=== PATIENT | female | born 1975 | race Caucasian/White ===

== ENCOUNTER 2018-12-23 06:17 | Inpatient (IN) | payer OTHER ==
[~2018-12-23] VITALS: Ht 167.6 cm; Wt 75.0 kg
[2018-12-23 08:35] VITALS: BP 131/64; PULSE 69; RESP 18; Ht 167.6 cm; Wt 75.0 kg
--- NOTE | 2018-12-23 10:11 | HP ---
Date/Time of Note Date/Time of Note DATE: 12/23/18 TIME: 10:10 Assessment/Plan VTE Prophylaxis Pharmacological prophylaxis: NA/contraindicated Pharm contraindication: low risk/ambulating Lines/Catheters IV Catheter Type (from [facility]): Saline Lock Assessment/Plan Hospital Course Symptomatic Cholelithiasis r/o choledocholithiasis -MRCP -surgical consult, if there's evidence of obstruction, will get GI -repeat labs -NPO for now -pain control and supportive care HPI/ROS Admit Date/Time Admit Date/Time December 23, 2018 at 08:45 Hx of Present Illness 43-year-old female who was sent to us from outside emergency room after she had gone to review for complaints of right upper quadrant pain for the last 8 days. Apparently she had gone to a different ER day prior and was giving pain medication but the pain was persistent. At that time she had been diagnosed with gallstones. Unfortunately the pain medications that were prescribed did not relieve her pain and so she went to [facility] for reassessment. She denied fever, hematemesis, melena, or hematochezia. Denies chest pain or shortness of breath. Had labs at the emergency room was notable for LFT elevation with obstructive biliary pattern. Ultrasound was showing a dilated common bile duct but no gallstone. The emergency room made a decision to admit for obstructive hepatopathy. Patient was at transferred to us due to insurance reasons. ROS 12 point review if systems was done and pertinent findings are as noted. PMH/Family/Social Past Medical History Medical History: gallstones Coded Allergies: No Known Allergy (Unverified , 12/23/18) Past Surgical History Past Surgical Hx: no surgical history Family History Significant Family History: no pertinent family hx Social History Alcohol Use: none Smoking Status: Never smoker Drug Use: none Exam/Review of Systems Vital Signs Vitals Vital Signs Date Temp Pulse Resp B/P (MAP) Pulse Ox O2 O2 Flow FiO2 Time Delivery Rate 12/23/18 98.0 69 18 131/64 100 Room Air 08:35 (86) Exam Exam General: A&O x3, answering questions appropriately HEENT: NC/ AT. PERRL. EOM intact Neck: supple CVS: S1, S2, RRR. no murmurs. no pain on chest wall palpation Lungs: CTA b/l. no wheezing or rhonchi Abd: soft, RUQ and epigastric tenderness, +BS Ext: moving all extremities skin: no rashes ANDRÉS GRAHAM December 23, 2018 10:11
[2018-12-23] MEDS: DOCUSATE SODIUM 100 MG CAP PO SCH ×2 (10:30→19:58)
[2018-12-23] MEDS ORDERED: ACETAMINOPHEN 325 MG TAB PO PRN (10:30)
[2018-12-23] MEDS: FAMOTIDINE 20 MG TAB PO SCH ×2 (10:30→19:59)
[2018-12-23] MEDS ORDERED: HYDROCODONE/APAP (5/325) TAB PO PRN (10:30)
[2018-12-23] MEDS ORDERED: ONDANSETRON 4 MG INJ IV PRN (10:30)
[2018-12-23] MEDS: DEXTROSE 5%-0.45% NACL 1,000 ML IV SCH ×3 (11:04→22:05)
[2018-12-23] MEDS: morphine 2 MG INJ IV PRN (15:49)
[2018-12-23 16:25] VITALS: BP 129/62; PULSE 68; RESP 18
--- NOTE | 2018-12-23 17:39 | CONS ---
Assessment/Plan Assessment/Plan Hospital Course (Demo Recall) Summary Assessment and Plan: Assessment: Transaminitis Direct hyperbilirubinemia Dilated common bile duct on ultrasound from outside hospital Probable hepatic steatosis Plan: MRCP pending results patient may require ERCP Monitor LFTs Hepatitis panel ok to start clear liquid diet after MRCP Patient seen in collaboration with Dr. Orozco CC: OVIDIO OROZCO MD ; Consultation Date/Type/Reason Admit Date/Time December 23, 2018 at 08:45 Date of Consultation: December 23, 2018 Type of Consult GI Reason for Consultation Transaminitis with direct hyperbilirubinemia Dilated common bile duct Date/Time of Note DATE: 12/23/18 TIME: 17:27 Hx of Present Illness This is a 43-year-old speaking female with no significant past medical history who presented to an outside hospital with complaints of right upper quadrant pain with radiation to the back associated with nausea and vomiting. There work -up included chemistry panel which revealed transaminitis with direct hyperbilirubinemia lipase was noted to be within normal limits she had a test which was negative. A right upper quadrant ultrasound showing probable hepatic steatosis unremarkable sonographic appearance of the gallbladder NO gallstones and a dilated extrahepatic common bile duct measuring up to 9 mm in greatest dimension once deemed stable patient was transferred to [facility] for further evaluation. Currently patient patient states pain has improved with the use of morphine no complaints of nausea or vomiting at this time. Discussed plan for MRCP pending results patient may require ERCP. Review of Systems: A 12 system, review was conducted and is negative except as noted in the HPI or here. Past Medical History Medical History: gallstones Medications Current Medications Dextrose/Sodium Chloride 1,000 ml @ 100 mls/hr Q10H IV Last administered on 12/23/18at 11:04; Admin Dose 100 MLS/HR; Start 12/23/18 at 10:30 Ondansetron HCl (Zofran Inj) 4 mg Q6H PRN IV NAUSEA/VOMITING; Start 12/23/18 at 10:30 Acetaminophen (Tylenol Tab) 650 mg Q6H PRN PO .PAIN 1-3 OR TEMP; Start 12/23/18 at 10:30 Acetaminophen/ Hydrocodone Bitart ([place] (5/325)) 1 tab Q6H PRN PO .MOD PAIN 4- 6; Start 12/23/18 at 10:30 Morphine Sulfate (morphine) 2 mg Q4H PRN IV .SEVERE PAIN 7-10 Last administered on 12/23/18at 15:49; Admin Dose 2 MG; Start 12/23/18 at 10:30 Docusate Sodium (Colace) 100 mg Q12 PO ; Start 12/23/18 at 10:30 Famotidine (Pepcid) 20 mg Q12 PO ; Start 12/23/18 at 10:30 Allergies: Coded Allergies: No Known Allergy (Unverified , 12/23/18) Past Surgical History Past Surgical Hx: no surgical history Social History Alcohol Use: none Smoking Status: Never smoker Drug Use: none Exam/Review of Systems Exam Vitals Vital Signs Date Temp Pulse Resp B/P (MAP) Pulse Ox O2 O2 Flow FiO2 Time Delivery Rate 12/23/18 98.0 68 18 129/62 90 Room Air 16:25 (84) Exam PHYSICAL EXAMINATION: GENERAL: Well developed, well nourished, alert & oriented x 3, in no acute distress SKIN: No lesions HEAD: Normocephalic, atraumatic, no tenderness. EYES: Pupils equal reactive to light, no discharge. EARS/NOSE AND THROAT: Ears normal. NECK: Supple, no masses, thyroid normal. CHEST: Inspection within normal limits. CARDIOVASCULAR: Heart: Regular rate and rhythm, RESPIRATORY: Lungs clear to auscultation and percussion, no wheezing, no rubs GASTROINTESTINAL AND LIVER: Abdomen: Soft, RUQ tenderness, non-distended, no hernias, no masses, no organomegaly, no ascites, no guarding, no rebound tenderness, normoactive bowel sounds. Rectal: Deferred. EXTREMITIES: No cyanosis, clubbing or edema. Medications Medication Current Medications Dextrose/Sodium Chloride 1,000 ml @ 100 mls/hr Q10H IV Last administered on 12/23/18at 11:04; Admin Dose 100 MLS/HR; Start 12/23/18 at 10:30 Ondansetron HCl (Zofran Inj) 4 mg Q6H PRN IV NAUSEA/VOMITING; Start 12/23/18 at 10:30 Acetaminophen (Tylenol Tab) 650 mg Q6H PRN PO .PAIN 1-3 OR TEMP; Start 12/23/18 at 10:30 Acetaminophen/ Hydrocodone Bitart ([place] (5/325)) 1 tab Q6H PRN PO .MOD PAIN 4- 6; Start 12/23/18 at 10:30 Morphine Sulfate (morphine) 2 mg Q4H PRN IV .SEVERE PAIN 7-10 Last administered on 12/23/18at 15:49; Admin Dose 2 MG; Start 12/23/18 at 10:30 Docusate Sodium (Colace) 100 mg Q12 PO ; Start 12/23/18 at 10:30 Famotidine (Pepcid) 20 mg Q12 PO ; Start 12/23/18 at 10:30 ANDERS DAVIS December 23, 2018 17:38
[2018-12-23 19:20] VITALS: BP 124/67; PULSE 62; RESP 18
--- NOTE | 2018-12-23 20:17 | CONS ---
Consultation Date/Type/Reason Admit Date/Time December 23, 2018 at 08:45 Date of Consultation: December 23, 2018 Type of Consult G. Surgical Reason for Consultation Abdominal pain Transaminitis Hyperbilirubinemia CBD dilation Date/Time of Note DATE: 12/23/18 TIME: 20:16 Past Medical History Medical History: gallstones Medications Current Medications Dextrose/Sodium Chloride 1,000 ml @ 100 mls/hr Q10H IV Last administered on 12/23/18at 11:04; Admin Dose 100 MLS/HR; Start 12/23/18 at 10:30 Ondansetron HCl (Zofran Inj) 4 mg Q6H PRN IV NAUSEA/VOMITING; Start 12/23/18 at 10:30 Acetaminophen (Tylenol Tab) 650 mg Q6H PRN PO .PAIN 1-3 OR TEMP; Start 12/23/18 at 10:30 Acetaminophen/ Hydrocodone Bitart ([place] (5/325)) 1 tab Q6H PRN PO .MOD PAIN 4- 6; Start 12/23/18 at 10:30 Morphine Sulfate (morphine) 2 mg Q4H PRN IV .SEVERE PAIN 7-10 Last administered on 12/23/18at 15:49; Admin Dose 2 MG; Start 12/23/18 at 10:30 Docusate Sodium (Colace) 100 mg Q12 PO ; Start 12/23/18 at 10:30 Famotidine (Pepcid) 20 mg Q12 PO ; Start 12/23/18 at 10:30 Allergies: Coded Allergies: No Known Allergy (Unverified , 12/23/18) Past Surgical History Past Surgical Hx: no surgical history Social History Alcohol Use: none Smoking Status: Never smoker Drug Use: none Exam/Review of Systems Exam Vitals Vital Signs Date Temp Pulse Resp B/P (MAP) Pulse Ox O2 O2 Flow FiO2 Time Delivery Rate 12/23/18 98.0 68 18 129/62 90 Room Air 16:25 (84) Medications Medication Current Medications Dextrose/Sodium Chloride 1,000 ml @ 100 mls/hr Q10H IV Last administered on 12/23/18at 11:04; Admin Dose 100 MLS/HR; Start 12/23/18 at 10:30 Ondansetron HCl (Zofran Inj) 4 mg Q6H PRN IV NAUSEA/VOMITING; Start 12/23/18 at 10:30 Acetaminophen (Tylenol Tab) 650 mg Q6H PRN PO .PAIN 1-3 OR TEMP; Start 12/23/18 at 10:30 Acetaminophen/ Hydrocodone Bitart ([place] (5/325)) 1 tab Q6H PRN PO .MOD PAIN 4- 6; Start 12/23/18 at 10:30 Morphine Sulfate (morphine) 2 mg Q4H PRN IV .SEVERE PAIN 7-10 Last administered on 12/23/18at 15:49; Admin Dose 2 MG; Start 12/23/18 at 10:30 Docusate Sodium (Colace) 100 mg Q12 PO ; Start 12/23/18 at 10:30 Famotidine (Pepcid) 20 mg Q12 PO ; Start 12/23/18 at 10:30 ARTIS MAHER MD December 23, 2018 20:17
[2018-12-24] VITALS (7 sets, daily range): BP systolic 110–132; BP diastolic 65–74; PULSE 60–80; RESP 16–20
[2018-12-24] MEDS: morphine 2 MG INJ IV PRN (07:52)
[2018-12-24] MEDS: DOCUSATE SODIUM 100 MG CAP PO SCH ×2 (08:34→21:56)
[2018-12-24] MEDS: FAMOTIDINE 20 MG TAB PO SCH ×2 (08:34→21:56)
--- NOTE | 2018-12-24 10:30 | PN ---
Date/Time of Note Date/Time of Note DATE: 12/24/18 TIME: 10:28 Assessment/Plan VTE Prophylaxis Risk score (from Ns)>0 risk: 1 SCD applied (from Ns): Yes Pharmacological prophylaxis: other (scds) Lines/Catheters IV C[facility] Type (from [facility]): Saline Lock Assessment/Plan Hospital Course Summary Assessment and Plan: Assessment: Transaminitis Direct hyperbilirubinemia Dilated common bile duct on ultrasound from outside hospital -MRCP- Choledocholithiasis and mild intra and extrahepatic biliary ductal dil atation as described Probable acute cholecystitis with at least 1 stone or a grouping of stones seen in the cystic duct Probable hepatic steatosis Plan: NPO-we will plan for ERCP today pending OR availability I discussed with/benefits of sedation and procedure with patient verbalized understanding is agreeable Patient seen in collaboration with Dr. Orozco/[place] Subjective: Course reviewed with nursing staff Patient interviewed and examined All labs, imaging and other results reviewed The patient states she feels a little better Exam PHYSICAL EXAMINATION: GENERAL: Well developed, well nourished, alert & oriented x 3, in no acute distress SKIN: No lesions HEAD: Normocephalic, atraumatic, no tenderness. EYES: Pupils equal reactive to light, no discharge. EARS/NOSE AND THROAT: Ears normal. NECK: Supple, no masses, thyroid normal. CHEST: Inspection within normal limits. CARDIOVASCULAR: Heart: Regular rate and rhythm, RESPIRATORY: Lungs clear to auscultation and percussion, no wheezing, no rubs GASTROINTESTINAL AND LIVER: Abdomen: Soft, RUQ tenderness, non-distended, no hernias, no masses, no organomegaly, no ascites, no guarding, no rebound tenderness, normoactive bowel sounds. Rectal: Deferred. EXTREMITIES: No cyanosis, clubbing or edema. Result Diagram: 12/24/18 0434 12/24/18 0434 Results 24hrs Laboratory Tests Test 12/23/18 19:16 12/24/18 04:34 Hepatitis B Surface Antigen NEGATIVE Hepatitis B Core Total Antibody NEGATIVE Hepatitis C Antibody NEGATIVE White Blood Count 6.6 Red Blood Count 3.94 L Hemoglobin 11.9 L Hematocrit 36.1 L Mean Corpuscular Volume 91.6 Mean Corpuscular Hemoglobin 30.2 Mean Corpuscular Hemoglobin Concent 33.0 Red Cell Distribution Width 14.2 Platelet Count 265 Mean Platelet Volume 9.5 Immature Granulocytes % 0.300 Neutrophils % 53.5 Lymphocytes % 34.2 Monocytes % 9.1 Eosinophils % 2.3 Basophils % 0.6 Nucleated Red Blood Cells % 0.0 Immature Granulocytes # 0.020 Neutrophils # 3.5 Lymphocytes # 2.3 Monocytes # 0.6 Eosinophils # 0.2 Basophils # 0.0 Nucleated Red Blood Cells # 0.0 Sodium Level 139 Potassium Level 3.7 Chloride Level 105 Carbon Dioxide Level 28 Anion Gap 6 Blood Urea Nitrogen 5 L Creatinine 0.73 Est Glomerular Filtrat Rate mL/min > 60 Glucose Level 82 Calcium Level 8.8 Total Bilirubin 0.7 Direct Bilirubin 0.00 Indirect Bilirubin 0.7 Aspartate Amino Transf (AST/SGOT) 83 H Alanine Aminotransferase (ALT/SGPT) 206 H Alkaline Phosphatase 118 Total Protein 6.1 Albumin 3.4 Exam/Review of Systems Exam Vitals Vital Signs Date Temp Pulse Resp B/P (MAP) Pulse Ox O2 O2 Flow FiO2 Time Delivery Rate 12/24/18 98.2 63 18 112/65 92 Room Air 08:26 (81) Intake and Output 12/23/18 12/23/18 12/24/18 1515:00 23:00 07:00 IntakeIntake Total 1550 ml 600 ml BalanceBalance 1550 ml 600 ml Results Results 24hrs Laboratory Tests Test 12/23/18 19:16 12/24/18 04:34 Hepatitis B Surface Antigen NEGATIVE Hepatitis B Core Total Antibody NEGATIVE Hepatitis C Antibody NEGATIVE White Blood Count 6.6 Red Blood Count 3.94 L Hemoglobin 11.9 L Hematocrit 36.1 L Mean Corpuscular Volume 91.6 Mean Corpuscular Hemoglobin 30.2 Mean Corpuscular Hemoglobin Concent 33.0 Red Cell Distribution Width 14.2 Platelet Count 265 Mean Platelet Volume 9.5 Immature Granulocytes % 0.300 Neutrophils % 53.5 Lymphocytes % 34.2 Monocytes % 9.1 Eosinophils % 2.3 Basophils % 0.6 Nucleated Red Blood Cells % 0.0 Immature Granulocytes # 0.020 Neutrophils # 3.5 Lymphocytes # 2.3 Monocytes # 0.6 Eosinophils # 0.2 Basophils # 0.0 Nucleated Red Blood Cells # 0.0 Sodium Level 139 Potassium Level 3.7 Chloride Level 105 Carbon Dioxide Level 28 Anion Gap 6 Blood Urea Nitrogen 5 L Creatinine 0.73 Est Glomerular Filtrat Rate mL/min > 60 Glucose Level 82 Calcium Level 8.8 Total Bilirubin 0.7 Direct Bilirubin 0.00 Indirect Bilirubin 0.7 Aspartate Amino Transf (AST/SGOT) 83 H Alanine Aminotransferase (ALT/SGPT) 206 H Alkaline Phosphatase 118 Total Protein 6.1 Albumin 3.4 Medications Medication Current Medications Dextrose/Sodium Chloride 1,000 ml @ 100 mls/hr Q10H IV Last administered on 12/23/18 22:05; Admin Dose 100 MLS/HR; Start 12/23/18 at 10:30 Ondansetron HCl (Zofran Inj) 4 mg Q6H PRN IV NAUSEA/VOMITING; Start 12/23/18 at 10:30 Acetaminophen (Tylenol Tab) 650 mg Q6H PRN PO .PAIN 1-3 OR TEMP; Start 12/23/18 at 10:30 Acetaminophen/ Hydrocodone Bitart ([place] (5/325)) 1 tab Q6H PRN PO .MOD PAIN 4- 6 Last administered on 12/24/18 07:42; Admin Dose 1 TAB; Start 12/23/18 at 10:30 Morphine Sulfate (morphine) 2 mg Q4H PRN IV .SEVERE PAIN 7-10 Last administered on 12/24/18 07:52; Admin Dose 2 MG; Start 12/23/18 at 10:30 Docusate Sodium (Colace) 100 mg Q12 PO Last administered on 12/24/18 08:34; Admin Dose 100 MG; Start 12/23/18 at 10:30 Famotidine (Pepcid) 20 mg Q12 PO Last administered on 12/24/18 08:34; Admin Dose 20 MG; Start 12/23/18 at 10:30 ANDERS DAVIS December 24, 2018 10:30
--- NOTE | 2018-12-24 11:34 | PN ---
Date/Time of Note Date/Time of Note DATE: 12/24/18 TIME: 11:30 Assessment/Plan Lines/Catheters IV C[facility] Type (from [facility]): Saline Lock Assessment/Plan Chief Complaint/Hosp Course 1. Symptomatic cholelithiasis with choledocholithiasis and stone within cystic duct: -ERCP -Eventual lap les -Eventual low-fat low-cholesterol diet 2. Abdominal pain: -As above -Pain management 3.Mild transaminitis -As above -Trend 4. Normocytic normochromic anemia: -Monitor and transfuse as needed 5. Overweight BMI: 27 -diet and exercise optimization -encourage weight loss Thank you. Patient seen and examined in collaboration with Dr. Lane Florian. Subjective 24 Hr Interval Summary Continues to have abdominal pain. No fevers, chills, sob, congested cough, cp, palpitations, leyva, dizziness, nausea, vomiting, diarrhea, dysuria. Exam/Review of Systems Vital Signs Vitals Vital Signs Date Temp Pulse Resp B/P (MAP) Pulse Ox O2 O2 Flow FiO2 Time Delivery Rate 12/24/18 98.2 63 18 112/65 92 Room Air 08:26 (81) Intake and Output 12/23/18 12/23/18 12/24/18 1414:59 22:59 06:59 IntakeIntake Total 1550 ml 600 ml BalanceBalance 1550 ml 600 ml Exam Constitutional: alert, oriented, well developed Psych: nl mood/affect; No anxiety Head: normocephalic, atraumatic Eyes: nl conjunctiva, EOMI, nl lids, nl sclera ENMT: nl external ears & nose, nl lips & teeth, mucosa pink and moist Neck: supple, non-tender Respiratory: clear to auscultation, normal air movement Cardiovascular: regular rate and rhythm, nl pulses Gastrointestinal: soft, tender (Right upper quadrant; Rodriguez's negative by palpation) Musculoskeletal: nl extremities to inspection, nl gait and stance Extremities: normal pulses Neurological: nl mental status, nl speech, nl strength Skin: nl turgor; No rash or lesions Lymph: nl lymph nodes Results Result Diagram: 12/24/18 0434 12/24/18 0434 MARY OSMAN NP December 24, 2018 11:34
--- NOTE | 2018-12-24 12:33 | PN ---
Date/Time of Note Date/Time of Note DATE: 12/24/18 TIME: 12:29 Assessment/Plan VTE Prophylaxis Risk score (from Ns)>0 risk: 1 SCD applied (from Ns): Yes Pharmacological prophylaxis: NA/contraindicated Pharm contraindication: low risk/ambulating Lines/Catheters [facility] Saline Lock Urinary Cath still in place: No Assessment/Plan Hospital Course s: no new issues, NPO for possible ERCP today O: Constitutional: alert, oriented Head: atraumatic, normocephalic Neck: non-tender, supple Respiratory: clear to auscultation Cardiovascular: regular rate and rhythm Gastrointestinal: S/ seems less tender? / +BS Extremities: no edema, good radial pulses assessment and plan: Cholecystitis with Cholelithiasis and obstructive choledocholithiasis -MRCP concerning for cholecystitis with cholelithiasis, choledocholithiasis and intrahepatic extrahepatic biliary ductal dilatation -ERCP today and hopefully subsequent lap les tomorrow? -add abx for cholecystitis -pain control and supportive care Result Diagram: 12/24/18 0434 12/24/18 0434 Results 24hrs Laboratory Tests Test 12/23/18 19:16 12/24/18 04:34 Hepatitis B Surface Antigen NEGATIVE Hepatitis B Core Total Antibody NEGATIVE Hepatitis C Antibody NEGATIVE White Blood Count 6.6 Red Blood Count 3.94 L Hemoglobin 11.9 L Hematocrit 36.1 L Mean Corpuscular Volume 91.6 Mean Corpuscular Hemoglobin 30.2 Mean Corpuscular Hemoglobin Concent 33.0 Red Cell Distribution Width 14.2 Platelet Count 265 Mean Platelet Volume 9.5 Immature Granulocytes % 0.300 Neutrophils % 53.5 Lymphocytes % 34.2 Monocytes % 9.1 Eosinophils % 2.3 Basophils % 0.6 Nucleated Red Blood Cells % 0.0 Immature Granulocytes # 0.020 Neutrophils # 3.5 Lymphocytes # 2.3 Monocytes # 0.6 Eosinophils # 0.2 Basophils # 0.0 Nucleated Red Blood Cells # 0.0 Sodium Level 139 Potassium Level 3.7 Chloride Level 105 Carbon Dioxide Level 28 Anion Gap 6 Blood Urea Nitrogen 5 L Creatinine 0.73 Est Glomerular Filtrat Rate mL/min > 60 Glucose Level 82 Calcium Level 8.8 Total Bilirubin 0.7 Direct Bilirubin 0.00 Indirect Bilirubin 0.7 Aspartate Amino Transf (AST/SGOT) 83 H Alanine Aminotransferase (ALT/SGPT) 206 H Alkaline Phosphatase 118 Total Protein 6.1 Albumin 3.4 Exam/Review of Systems Exam Vitals Vital Signs Date Temp Pulse Resp B/P (MAP) Pulse Ox O2 O2 Flow FiO2 Time Delivery Rate 12/24/18 98.2 63 18 112/65 92 Room Air 08:26 (81) Intake and Output 12/23/18 12/23/18 12/24/18 1515:00 23:00 07:00 IntakeIntake Total 1550 ml 600 ml BalanceBalance 1550 ml 600 ml Results Results 24hrs Laboratory Tests Test 12/23/18 19:16 12/24/18 04:34 Hepatitis B Surface Antigen NEGATIVE Hepatitis B Core Total Antibody NEGATIVE Hepatitis C Antibody NEGATIVE White Blood Count 6.6 Red Blood Count 3.94 L Hemoglobin 11.9 L Hematocrit 36.1 L Mean Corpuscular Volume 91.6 Mean Corpuscular Hemoglobin 30.2 Mean Corpuscular Hemoglobin Concent 33.0 Red Cell Distribution Width 14.2 Platelet Count 265 Mean Platelet Volume 9.5 Immature Granulocytes % 0.300 Neutrophils % 53.5 Lymphocytes % 34.2 Monocytes % 9.1 Eosinophils % 2.3 Basophils % 0.6 Nucleated Red Blood Cells % 0.0 Immature Granulocytes # 0.020 Neutrophils # 3.5 Lymphocytes # 2.3 Monocytes # 0.6 Eosinophils # 0.2 Basophils # 0.0 Nucleated Red Blood Cells # 0.0 Sodium Level 139 Potassium Level 3.7 Chloride Level 105 Carbon Dioxide Level 28 Anion Gap 6 Blood Urea Nitrogen 5 L Creatinine 0.73 Est Glomerular Filtrat Rate mL/min > 60 Glucose Level 82 Calcium Level 8.8 Total Bilirubin 0.7 Direct Bilirubin 0.00 Indirect Bilirubin 0.7 Aspartate Amino Transf (AST/SGOT) 83 H Alanine Aminotransferase (ALT/SGPT) 206 H Alkaline Phosphatase 118 Total Protein 6.1 Albumin 3.4 Medications Medication Current Medications Dextrose/Sodium Chloride 1,000 ml @ 100 mls/hr Q10H IV Last administered on 12/23/18at 22:05; Admin Dose 100 MLS/HR; Start 12/23/18 at 10:30 Ondansetron HCl (Zofran Inj) 4 mg Q6H PRN IV NAUSEA/VOMITING; Start 12/23/18 at 10:30 Acetaminophen (Tylenol Tab) 650 mg Q6H PRN PO .PAIN 1-3 OR TEMP; Start 12/23/18 at 10:30 Acetaminophen/ Hydrocodone Bitart ([place] (5/325)) 1 tab Q6H PRN PO .MOD PAIN 4- 6 Last administered on 12/24/18 07:42; Admin Dose 1 TAB; Start 12/23/18 at 10:30 Morphine Sulfate (morphine) 2 mg Q4H PRN IV .SEVERE PAIN 7-10 Last administered on 12/24/18 07:52; Admin Dose 2 MG; Start 12/23/18 at 10:30 Docusate Sodium (Colace) 100 mg Q12 PO Last administered on 12/24/18 08:34; Admin Dose 100 MG; Start 12/23/18 at 10:30 Famotidine (Pepcid) 20 mg Q12 PO Last administered on 12/24/18 08:34; Admin Dose 20 MG; Start 12/23/18 at 10:30 Indomethacin (Indocin Supp) 100 mg ONCE ONCE [place] ; Start 12/24/18 at 18:00; Stop 12/24/18 at 18:01 ANDRÉS GRAHAM December 24, 2018 12:33
[2018-12-24] MEDS: PIPER-TAZO 3.375 GM IV (PMX) 100 ML IVPB SCH ×2 (13:06→21:56)
[2018-12-24] MEDS ORDERED: IOHEXOL 300MG/ML 30 ML BTL ONE (13:58)
--- NOTE | 2018-12-24 14:03 | PREAC ---
Date/Time of Note Date/Time of Note DATE: 12/24/18 TIME: 14:01 Anesthesia Eval and Record Evaluation Time Pre-Procedure Interview DATE: 12/24/18 TIME: 14:01 Age 43 Sex female NPO: 8 hrs Preoperative diagnosis choledocholithiasis Planned procedure ercp Past Medical History Past Medical History: None Surgery & Anesthesia Issues No known issue Meds Anticoagulation: No Beta Dominick within 24 hr: No Reason Beta Dominick not given: Pt. not on B-Dominick Current Medications Dextrose/Sodium Chloride 1,000 ml @ 100 mls/hr Q10H IV Last administered on 12/23/18at 22:05; Admin Dose 100 MLS/HR; Start 12/23/18 at 10:30 Ondansetron HCl (Zofran Inj) 4 mg Q6H PRN IV NAUSEA/VOMITING; Start 12/23/18 at 10:30 Acetaminophen (Tylenol Tab) 650 mg Q6H PRN PO .PAIN 1-3 OR TEMP; Start 12/23/18 at 10:30 Acetaminophen/ Hydrocodone Bitart ([place] (5/325)) 1 tab Q6H PRN PO .MOD PAIN 4- 6 Last administered on 12/24/18at 07:42; Admin Dose 1 TAB; Start 12/23/18 at 10:30 Morphine Sulfate (morphine) 2 mg Q4H PRN IV .SEVERE PAIN 7-10 Last administered on 12/24/18at 07:52; Admin Dose 2 MG; Start 12/23/18 at 10:30 Docusate Sodium (Colace) 100 mg Q12 PO Last administered on 12/24/18at 08:34; Admin Dose 100 MG; Start 12/23/18 at 10:30 Famotidine (Pepcid) 20 mg Q12 PO Last administered on 12/24/18at 08:34; Admin Dose 20 MG; Start 12/23/18 at 10:30 Indomethacin (Indocin Supp) 100 mg ONCE ONCE [place] ; Start 12/24/18 at 18:00; Stop 12/24/18 at 18:01 Piperacillin Sod/ Tazobactam Sod 100 ml @ 200 mls/hr Q8 IVPB Last administered on 12/24/18at 13:06; Admin Dose 200 MLS/HR; Start 12/24/18 at 13:00 Meds reviewed: Yes Allergies Coded Allergies: No Known Allergy (Unverified , 5/22/19) Allergies Reviewed: Yes Labs/Studies Labs Reviewed: Reviewed by anesthesiologist Result Diagram: 12/24/18 0434 12/24/18 0434 Laboratory Tests 12/24/18 04:34 test: Negative Pre-procedure Exam Last vitals Vital Signs Date Temp Pulse Resp B/P (MAP) Pulse Ox O2 O2 Flow FiO2 Time Delivery Rate 12/24/18 98.2 63 18 112/65 92 Room Air 08:26 (81) Airway: Adequate mouth opening, Adequate thyromental dist Mallampati: Mallampati II Teeth: Normal Lung: Normal Heart: Normal ASA Physical Status ASA physical status: 1 Emergency: None Planned Anesthetic General/MAC: ETT Planned Pain Management Parenteral pain med Pre-operative Attestations Prior to commencing anesthesia and surgery, the patient was re-evaluated, there was verification of: *The patient's identity *The results of appropriate recent lab work and preoperative vital signs *The above evaluation not changing prior to induction *Anesthetic plan, risk benefits, alternative and complications discussed with patient/family; questions answered; patient/family understands, accepts and wishes to proceed. GEOFF MCKEE December 24, 2018 14:03
[2018-12-24] MEDS ORDERED: PROPOFOL 20 ML ONE (14:11)
--- NOTE | 2018-12-24 14:11 | HPN ---
Date/Time of Note Date/Time of Note DATE: 12/24/18 TIME: 14:11 Interval H&P Admission Note Pt. seen H&P reviewed: No system changes JUAN JAMES December 24, 2018 14:11
[2018-12-24] MEDS ORDERED: LIDOCAINE 2% (SDV) 5 ML INJ ONE (14:12)
[2018-12-24] MEDS ORDERED: ROCURONIUM 50 MG INJ ONE (14:12)
[2018-12-24] MEDS ORDERED: DEXAMETHASONE 4 MG/ML 5 ML INJ ONE (14:42)
[2018-12-24] MEDS ORDERED: ONDANSETRON 4 MG INJ ONE (14:42)
[2018-12-24] MEDS ORDERED: GLYCOPYRROLATE 0.4 MG INJ ONE (15:27)
[2018-12-24] MEDS ORDERED: NEOSTIGMINE 3 MG/3 ML SYRINGE ONE (15:27)
[2018-12-24] MEDS ORDERED: MIDAZOLAM 1 MG/ML 2 ML INJ IV PRN (15:30)
[2018-12-24] MEDS ORDERED: LABETALOL HCL 20MG INJ IV PRN (15:30)
[2018-12-24] MEDS ORDERED: FENTAnyl 50 MCG/ML VIAL IV PRN ×3 (15:30)
[2018-12-24] MEDS ORDERED: EPHEDrine 25 MG/5 ML SYG IV PRN (15:30)
[2018-12-24] MEDS ORDERED: ONDANSETRON 4 MG INJ IV PRN (15:30)
[2018-12-24] MEDS ORDERED: hydrALAzine 20 MG INJ IV PRN (15:30)
[2018-12-24] MEDS ORDERED: MEPERIDINE 25 MG INJ IV PRN (15:30)
[2018-12-24] MEDS ORDERED: ALBUTEROL 0.083% (NEB) 2.5 MG/3 ML AMP HHN PRN (15:30)
[2018-12-24] MEDS ORDERED: METOCLOPRAMIDE 10 MG INJ IV PRN (15:30)
[2018-12-24] MEDS ORDERED: KETOROLAC 30 MG INJ IV PRN (15:30)
[2018-12-24] MEDS ORDERED: HYDROmorphONE 1 MG/5 ML IV SYRINGE IV PRN ×3 (15:30)
[2018-12-24] MEDS ORDERED: DIPHENHYDRAMINE 50 MG INJ IV PRN (15:30)
--- NOTE | 2018-12-24 16:09 | PAC ---
Date/Time of Note Date/Time of Note DATE: 12/24/18 TIME: 16:09 Post-Anesthesia Notes Post-Anesthesia Note Last documented vital signs Vital Signs Date Temp Pulse Resp B/P (MAP) Pulse Ox O2 O2 Flow FiO2 Time Delivery Rate 12/24/18 98.2 63 18 112/65 92 Room Air 1600 (81) Activity: WNL Respiratory function: WNL Cardiovascular function: WNL Mental status: Baseline Pain reasonably controlled: Yes Hydration appropriate: Yes Nausea/Vomiting absent: Yes GEOFF MCKEE December 24, 2018 16:09
[2018-12-24] MEDS ORDERED: INDOMETHACIN 50 MG SUPP PR ONE (18:00)
[2018-12-25] VITALS (17 sets, daily range): BP systolic 115–158; BP diastolic 61–81; PULSE 62–77; RESP 12–24
[2018-12-25] MEDS: DEXTROSE 5%-0.45% NACL 1,000 ML IV SCH ×4 (00:25→22:14)
[2018-12-25] MEDS: PIPER-TAZO 3.375 GM IV (PMX) 100 ML IVPB SCH ×3 (05:43→22:14)
[2018-12-25] MEDS: FAMOTIDINE 20 MG TAB PO SCH ×2 (09:00→21:00)
[2018-12-25] MEDS: DOCUSATE SODIUM 100 MG CAP PO SCH ×2 (09:00→21:00)
--- NOTE | 2018-12-25 13:54 | PREAC ---
Date/Time of Note Date/Time of Note DATE: 12/25/18 TIME: 13:52 Anesthesia Eval and Record Evaluation Time Pre-Procedure Interview DATE: 12/25/18 TIME: 13:52 Age 43 Sex female NPO: 8 hrs Preoperative diagnosis SYMPTOMATIC CHOLELITHIASIS Planned procedure LAPAROSCOPIC POSSIBLE OPEN CHOLECYSTECTOMY, POSSIBLE INTRAOPERATIVE CHOLANGIOGRAM, POSSIBLE LIVER BIOPSY BY DR MAHER Past Medical History Past Medical History: Includes GI: Obesity (BMI 27) Surgery & Anesthesia Issues No known issue (HAD EGD YESTERDAY, NO COMPLICATIONS WITH ANESTHESIA) Meds Anticoagulation: No Beta Dominick within 24 hr: No Reason Beta Dominick not given: Pt. not on B-Dominick Current Medications Dextrose/Sodium Chloride 1,000 ml @ 100 mls/hr Q10H IV Last administered on 12/25/18at 00:25; Admin Dose 100 MLS/HR; Start 12/23/18 at 10:30 Ondansetron HCl (Zofran Inj) 4 mg Q6H PRN IV NAUSEA/VOMITING; Start 12/23/18 at 10:30 Acetaminophen (Tylenol Tab) 650 mg Q6H PRN PO .PAIN 1-3 OR TEMP; Start 12/23/18 at 10:30 Acetaminophen/ Hydrocodone Bitart ([place] (5/325)) 1 tab Q6H PRN PO .MOD PAIN 4- 6 Last administered on 12/24/18at 07:42; Admin Dose 1 TAB; Start 12/23/18 at 10:30 Morphine Sulfate (morphine) 2 mg Q4H PRN IV .SEVERE PAIN 7-10 Last administered on 12/24/18 07:52; Admin Dose 2 MG; Start 12/23/18 at 10:30 Docusate Sodium (Colace) 100 mg Q12 PO Last administered on 12/24/18at 21:56; Admin Dose 100 MG; Start 12/23/18 at 10:30 Famotidine (Pepcid) 20 mg Q12 PO Last administered on 12/24/18 21:56; Admin Dose 20 MG; Start 12/23/18 at 10:30 Piperacillin Sod/ Tazobactam Sod 100 ml @ 200 mls/hr Q8 IVPB Last administered on 12/25/18at 05:43; Admin Dose 200 MLS/HR; Start 12/24/18 at 13:00 Meds reviewed: Yes Allergies Coded Allergies: No Known Allergy (Unverified , 12/23/18) Allergies Reviewed: Yes Labs/Studies Labs Reviewed: Reviewed by anesthesiologist Result Diagram: 12/24/18 0434 12/24/18 0434 test: Negative Pre-procedure Exam Last vitals Vital Signs Date Temp Pulse Resp B/P (MAP) Pulse Ox O2 O2 Flow FiO2 Time Delivery Rate 12/25/18 98.1 69 20 128/75 99 Room Air 08:28 (92) Airway: Adequate mouth opening, Adequate thyromental dist Mallampati: Mallampati II Teeth: Normal Lung: Normal Heart: Normal ASA Physical Status ASA physical status: 2 Emergency: None Planned Anesthetic General/MAC: ETT Nerve block: TAP (bilateral) Planned Pain Management Parenteral pain med, Local by surgeon Pre-operative Attestations Prior to commencing anesthesia and surgery, the patient was re-evaluated, there was verification of: *The patient's identity *The results of appropriate recent lab work and preoperative vital signs *The above evaluation not changing prior to induction *Anesthetic plan, risk benefits, alternative and complications discussed with patient/family; questions answered; patient/family understands, accepts and wishes to proceed. MOOKIE APARICIO December 25, 2018 13:54
--- NOTE | 2018-12-25 18:01 | PN ---
Date/Time of Note Date/Time of Note DATE: 12/25/18 TIME: 17:59 Assessment/Plan Lines/Catheters IV C[facility]ter Type (from [facility]): Saline Lock [place] in Place (from Nrs): No Assessment/Plan Chief Complaint/Hosp Course 1. Symptomatic cholelithiasis with choledocholithiasis and stone within cystic duct: s/p ercp and sphincterotomy -lap les today 2. Abdominal pain: -As above -Pain management 3.Mild transaminitis -As above -Trend 4. Normocytic normochromic anemia: -Monitor and transfuse as needed 5. Overweight BMI: 27 -diet and exercise optimization -encourage weight loss Thank you. Patient seen and examined in collaboration with Dr. Lane Florian. Subjective 24 Hr Interval Summary SP ercp yesterday. No fevers, chills, sob, congested cough, cp, palpitations, leyva, dizziness, n/v/d/dysuria. OR TODAY. Exam/Review of Systems Vital Signs Vitals Vital Signs Date Temp Pulse Resp B/P (MAP) Pulse Ox O2 O2 Flow FiO2 Time Delivery Rate 12/25/18 98.1 69 20 128/75 99 Room Air 08:28 (92) Intake and Output 12/24/18 12/24/18 12/25/18 1515:00 23:00 07:00 IntakeIntake Total 1320 ml 340 ml 600 ml BalanceBalance 1320 ml 340 ml 600 ml Exam Free Text/Dictation Constitutional: alert, oriented, well developed Psych: nl mood/affect; No anxiety Head: normocephalic, atraumatic Eyes: nl conjunctiva, EOMI, nl lids, nl sclera ENMT: nl external ears & nose, nl lips & teeth, mucosa pink and moist Neck: supple, non-tender Respiratory: clear to auscultation, normal air movement Cardiovascular: regular rate and rhythm, nl pulses Gastrointestinal: soft, tender (Right upper quadrant; Rodriguez's negative by palpation) Musculoskeletal: nl extremities to inspection, nl gait and stance Extremities: normal pulses Neurological: nl mental status, nl speech, nl strength Skin: nl turgor; No rash or lesions Lymph: nl lymph nodes Results Result Diagram: 12/24/18 0434 12/24/18 0434 MARY OSMAN NP December 25, 2018 18:01
[2018-12-25] MEDS ORDERED: LIDOCAINE 1% (MPF) 30 ML INJ ONE (18:05)
[2018-12-25] MEDS ORDERED: BUPIVACAINE 0.5%/EPI (SDV) 30 ML INJ ONE (18:05)
[2018-12-25] MEDS ORDERED: BUPIVACAINE 0.25%/EPI (SDV) 30 ML INJ ONE (18:11)
--- NOTE | 2018-12-25 18:37 | PN ---
Date/Time of Note Date/Time of Note DATE: 12/25/18 TIME: 17:20 Assessment/Plan VTE Prophylaxis Risk score (from Ns)>0 risk: 1 SCD applied (from Ns): Yes Pharmacological prophylaxis: NA/contraindicated Pharm contraindication: low risk/ambulating Lines/Catheters IV C[facility]ter Type (from [facility]): Saline Lock Urinary Cath still in place: No Assessment/Plan Hospital Course Assessment and plan 1. Symptomatic cholelithiasis. -Plan for laparoscopic cholecystectomy. - Continue with analgesics. - Follow-up with surgeon recommendations 2. Choledocholithiasis. -Patient status post ERCP. -Monitor LFT. Disposition plan. Plan for laparoscopic cholecystectomy. We will follow-up in a.m. Continue with analgesics as needed. Discussed POC with Dr. Finley Result Diagram: 12/24/18 0434 12/24/18433 Results 24hrs Laboratory Tests Test 12/25/18 04:00 Urine Test NEGATIVE Subjective 24 Hr Interval Summary Free Text/Dictation Patient seen and interviewed in surgical holding area. Denies any pain at present. Comfortable at present. 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, nl mental status, nl speech Skin: nl turgor Results Results 24hrs Laboratory Tests Test 12/25/18 04:00 Urine Test NEGATIVE Medications Medication Current Medications Dextrose/Sodium Chloride 1,000 ml @ 100 mls/hr Q10H IV Last administered on 12/25/18at 00:25; Admin Dose 100 MLS/HR; Start 12/23/18 at 10:30 Ondansetron HCl (Zofran Inj) 4 mg Q6H PRN IV NAUSEA/VOMITING; Start 12/23/18 at 10:30 Acetaminophen (Tylenol Tab) 650 mg Q6H PRN PO .PAIN 1-3 OR TEMP; Start 12/23/18 at 10:30 Acetaminophen/ Hydrocodone Bitart ([place] (5/325)) 1 tab Q6H PRN PO .MOD PAIN 4- 6 Last administered on 12/24/18 07:42; Admin Dose 1 TAB; Start 12/23/18 at 10:30 Morphine Sulfate (morphine) 2 mg Q4H PRN IV .SEVERE PAIN 7-10 Last administered on 12/24/18 07:52; Admin Dose 2 MG; Start 12/23/18 at 10:30 Docusate Sodium (Colace) 100 mg Q12 PO Last administered on 12/24/18 21:56; Admin Dose 100 MG; Start 12/23/18 at 10:30 Famotidine (Pepcid) 20 mg Q12 PO Last administered on 12/24/18 21:56; Admin Dose 20 MG; Start 12/23/18 at 10:30 Piperacillin Sod/ Tazobactam Sod 100 ml @ 200 mls/hr Q8 IVPB Last administered on 12/25/18 05:43; Admin Dose 200 MLS/HR; Start 12/24/18 at 13:00 BRAYDEN ANDREW NP December 25, 2018 18:37
[2018-12-25] MEDS ORDERED: ACETAMINOPHEN 325 MG TAB PO PRN (19:00)
[2018-12-25] MEDS ORDERED: morphine 2 MG INJ IV PRN (19:00)
[2018-12-25] MEDS ORDERED: HYDROCODONE/APAP (5/325) TAB PO PRN (19:00)
[2018-12-25] MEDS ORDERED: IBUPROFEN 600 MG TAB PO PRN (19:00)
[2018-12-25] MEDS ORDERED: ONDANSETRON 4 MG INJ IV PRN (19:30)
[2018-12-25] MEDS ORDERED: DIPHENHYDRAMINE 50 MG INJ IV PRN (19:30)
[2018-12-25] MEDS ORDERED: MEPERIDINE 25 MG INJ IV PRN (19:30)
[2018-12-25] MEDS ORDERED: HYDROmorphONE 1 MG/5 ML IV SYRINGE IV PRN ×3 (19:30)
[2018-12-25] MEDS ORDERED: METOCLOPRAMIDE 10 MG INJ IV PRN (19:30)
--- NOTE | 2018-12-25 19:56 | PAC ---
Date/Time of Note Date/Time of Note DATE: 12/25/18 TIME: 19:55 Post-Anesthesia Notes Post-Anesthesia Note Last documented vital signs Vital Signs Date Temp Pulse Resp B/P (MAP) Pulse Ox O2 O2 Flow FiO2 Time Delivery Rate 12/25/18 98.7 85 20 120/63 99 Room Air 1954 Activity: WNL Respiratory function: WNL Cardiovascular function: WNL Mental status: Baseline Pain reasonably controlled: Yes Hydration appropriate: Yes Nausea/Vomiting absent: Yes CARRIE MENDOSA DO December 25, 2018 19:56
--- NOTE | 2018-12-25 20:02 | OPR ---
Date/Time of Note Date/Time of Note DATE: 12/25/18 TIME: 19:58 Operative Report Free Text/Dictation Preoperative Diagnosis: Symptomatic cholelithiasis Choledocholithiasis status post ERCP Postoperative Diagnosis: Symptomatic cholelithiasis Abnormal liver color Choledocholithiasis status post ERCP Possible remnant common bile duct stone Operation(s) Performed: 1. 3 port laparoscopic cholecystectomy 2. Laparoscopic liver wedge resection biopsy 3. Attempted clearing of possible common bile duct stone however unable to maneuver Surgeon: Artis Maher MD Inspector Receiving: An Murphy NP Anesthesia: general, local, & regional Anesthesiologist: Mau Maldonado MD Estimated Blood Loss: 10 ml's Specimens: Gallbladder Liver Tubes/Drains: 15 Vietnamese [place] Complications: None Pt Condition Post Procedure: stable Disposition: PACU Indications: 43-year-old female with gallstones and abdominal pain here for cholecystectomy. Risks include but are not limited to bleeding, infection, abscess, seroma, damage to intestines, damage to the liver, damage to biliary tree, hernia formation, chronic pain, biloma, need for reoperations or further surgeries, MT, stroke, PE, DVT, pneumonia, organ failures, or even . Procedure Description: Patient was brought and placed supine on the operating table SCDs were placed, preoperative antibiotics were administered, all pressure points were well- padded, and after induction of anesthesia patient was prepped and draped in usual sterile fashion and timeout was performed. Incision was made in the supraumbilical region, Veress needle safely placed into the abdomen, after negative sleep test, abdomen was insufflated to 15 mils of mercury with CO2. Ve ress was removed and a 5 mm blunt trocar was safely placed into the abdomen. Laparoscopy was performed with a 5 mm 30 scope. No injuries were identified. The liver looked somewhat abnormal color. Gallbladder is contracted with some thickening. 12 mm port is placed in subxiphoid under direct visualization followed by another 5 mm port in the right upper quadrant. Patient was placed in reverse Trendelenburg and right side up on gallbladder was retracted superolaterally. Using electrocautery and blunt dissection I was able to identify the cystic artery and cystic duct. The duct was dilated but tapered into the gallbladder. Full critical angle view was identified. I attempted to palpate the cystic and common bile duct. This seems to be remnant large stone in the common bile duct. Multiple attempts were made to try to maneuver it into the cystic duct stump however unsuccessful. Due to the large nature of the cystic duct, it was transected with Endo LIZZY white load stapler. The artery was clipped proximally and distally twice and then transected. The gallbladder was taken off the liver with electrocautery. Hemostasis was obtained. Gallbladder was placed in an Endo Catch bag and removed through the subxiphoid port site. There was complete hemostasis. Due to the abnormality of the liver decision was made to perform liver wedge resection which was done with electrocautery and scissor with complete hemostasis right after. The specimen was sent to pathology for further evaluation. 15 Vietnamese [place] drain was placed through the lateral incision. 12 mm made port site fascia was closed with Endo Close of an 0 Vicryl in a [id number] manner. Ports and CO2 were removed under direct visualization. Next complete hemostasis. Wounds were thoroughly irrigated skin was closed with 4-0 Monocryl in subcuticular fashion. Dermabond was applied. Patient was extubated and transferred to recovery room in stable condition and all counts were correct and the end of the operation 2. ARTIS MAHER MD December 25, 2018 20:02
[2018-12-25] MEDS: morphine 2 MG INJ IV PRN (22:15)
[2018-12-26 00:01] VITALS: BP 132/70; PULSE 62; RESP 18
[2018-12-26 02:00] VITALS: BP 150/76; PULSE 72; RESP 18
[2018-12-26] MEDS: PIPER-TAZO 3.375 GM IV (PMX) 100 ML IVPB SCH ×3 (05:44→22:07)
[2018-12-26] MEDS: morphine 2 MG INJ IV PRN (06:50)
[2018-12-26 08:33] VITALS: BP 127/73; PULSE 60; RESP 19
[2018-12-26] MEDS: DOCUSATE SODIUM 100 MG CAP PO SCH ×2 (09:46→22:07)
[2018-12-26] MEDS: FAMOTIDINE 20 MG TAB PO SCH ×2 (09:46→22:07)
[2018-12-26] MEDS: DEXTROSE 5%-0.45% NACL 1,000 ML IV SCH (09:47)
[2018-12-26] MEDS ORDERED: POTASSIUM CHLORIDE (SR) 20 MEQ TAB PO STA (10:58)
--- NOTE | 2018-12-26 11:12 | PN ---
Date/Time of Note Date/Time of Note DATE: 12/26/18 TIME: 11:07 Assessment/Plan VTE Prophylaxis Risk score (from [facility])>0 risk: 9 SCD applied (from [facility]): Yes Pharmacological prophylaxis: NA/contraindicated Pharm contraindication: low risk/ambulating Lines/Catheters IV [facility] (from [facility] Peripheral IV Urinary Cath still in place: No Assessment/Plan Hospital Course Assessment and plan 1. symptomatic cholelithiasis. - s/p laparoscopic cholecystectomy with possible retained stone. Continue with analgesics. 2. Choledocholithiasis. Patient status post ERCP 12/25/18. Monitor LFT. is improving - f/u GI if need for repeat ercp 3. Hypokalemia - monitor electrolytes and replete as needed Disposition plan: continue with analgesics. advance diet as tolerated. Follow- up with GI for suspect retained stone. Discharge when cleared by consultants Discussed POC with Dr. Finley Result Diagram: 12/26/18 0437 12/26/18 0437 Results 24hrs Laboratory Tests Test 12/26/18 04:37 White Blood Count 10.3 # Red Blood Count 3.91 L Hemoglobin 11.9 L Hematocrit 35.6 L Mean Corpuscular Volume 91.0 Mean Corpuscular Hemoglobin 30.4 Mean Corpuscular Hemoglobin Concent 33.4 Red Cell Distribution Width 14.4 Platelet Count 277 Mean Platelet Volume 9.9 Immature Granulocytes % 0.300 Neutrophils % 68.8 Lymphocytes % 23.8 Monocytes % 6.2 Eosinophils % 0.6 Basophils % 0.3 Nucleated Red Blood Cells % 0.0 Immature Granulocytes # 0.030 Neutrophils # 7.1 Lymphocytes # 2.5 Monocytes # 0.6 Eosinophils # 0.1 Basophils # 0.0 Nucleated Red Blood Cells # 0.0 Sodium Level 137 Potassium Level 3.4 L Chloride Level 102 Carbon Dioxide Level 29 Anion Gap 6 Blood Urea Nitrogen 7 Creatinine 0.75 Est Glomerular Filtrat Rate mL/min > 60 Glucose Level 104 Calcium Level 8.4 Total Bilirubin 0.6 Direct Bilirubin 0.00 Indirect Bilirubin 0.6 Aspartate Amino Transf (AST/SGOT) 72 H Alanine Aminotransferase (ALT/SGPT) 134 H Alkaline Phosphatase 91 Total Protein 6.0 L Albumin 3.2 L Globulin 2.80 Albumin/Globulin Ratio 1.14 Subjective 24 Hr Interval Summary Free Text/Dictation patient reports only having pain on right upper abdominal quadrant 2 out of 10. Reports that able to tolerate eating Jell-O well. No other specific complaints. Exam/Review of Systems Exam Vitals Vital Signs Date Temp Pulse Resp B/P (MAP) Pulse Ox O2 O2 Flow FiO2 Time Delivery Rate 12/26/18 98.9 60 19 127/73 98 08:33 (91) 12/26/18 Nasal 1.0 00:01 Cannula Intake and Output 12/25/18 12/25/18 12/26/18 1515:00 23:00 07:00 IntakeIntake Total 500 ml 1600 ml 650 ml OutputOutput Total 55 ml 40 ml BalanceBalance 500 ml 1545 ml 610 ml Constitutional: alert, oriented Psych: nl mood/affect Head: normocephalic Neck: supple, non-tender Respiratory: clear to auscultation Cardiovascular: regular rate and rhythm Gastrointestinal: soft, tender (Minimally on right flank.), other (There is also noted KENYATTA bulb with serosanguineous drainage on right upper abdominal quadrant) Musculoskeletal: nl gait and stance 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, nl mental status, nl speech Skin: other (Surgical site clean dry and intact) Results Results 24hrs Laboratory Tests Test 12/26/18 04:37 White Blood Count 10.3 # Red Blood Count 3.91 L Hemoglobin 11.9 L Hematocrit 35.6 L Mean Corpuscular Volume 91.0 Mean Corpuscular Hemoglobin 30.4 Mean Corpuscular Hemoglobin Concent 33.4 Red Cell Distribution Width 14.4 Platelet Count 277 Mean Platelet Volume 9.9 Immature Granulocytes % 0.300 Neutrophils % 68.8 Lymphocytes % 23.8 Monocytes % 6.2 Eosinophils % 0.6 Basophils % 0.3 Nucleated Red Blood Cells % 0.0 Immature Granulocytes # 0.030 Neutrophils # 7.1 Lymphocytes # 2.5 Monocytes # 0.6 Eosinophils # 0.1 Basophils # 0.0 Nucleated Red Blood Cells # 0.0 Sodium Level 137 Potassium Level 3.4 L Chloride Level 102 Carbon Dioxide Level 29 Anion Gap 6 Blood Urea Nitrogen 7 Creatinine 0.75 Est Glomerular Filtrat Rate mL/min > 60 Glucose Level 104 Calcium Level 8.4 Total Bilirubin 0.6 Direct Bilirubin 0.00 Indirect Bilirubin 0.6 Aspartate Amino Transf (AST/SGOT) 72 H Alanine Aminotransferase (ALT/SGPT) 134 H Alkaline Phosphatase 91 Total Protein 6.0 L Albumin 3.2 L Globulin 2.80 Albumin/Globulin Ratio 1.14 Medications Medication Current Medications Ondansetron HCl (Zofran Inj) 4 mg Q6H PRN IV NAUSEA/VOMITING; Start 12/23/18 at 10:30 Acetaminophen (Tylenol Tab) 650 mg Q6H PRN PO .PAIN 1-3 OR TEMP; Start 12/23/18 at 10:30 Acetaminophen/ Hydrocodone Bitart ([place] (5/325)) 1 tab Q6H PRN PO .MOD PAIN 4- 6 Last administered on 12/24/18 07:42; Admin Dose 1 TAB; Start 12/23/18 at 10:30 Morphine Sulfate (morphine) 2 mg Q4H PRN IV .SEVERE PAIN 7-10 Last administered on 12/26/18 06:50; Admin Dose 2 MG; Start 12/23/18 at 10:30 Docusate Sodium (Colace) 100 mg Q12 PO Last administered on 12/26/18 09:46; Admin Dose 100 MG; Start 12/23/18 at 10:30 Famotidine (Pepcid) 20 mg Q12 PO Last administered on 12/26/18 09:46; Admin Dose 20 MG; Start 12/23/18 at 10:30 Piperacillin Sod/ Tazobactam Sod 100 ml @ 200 mls/hr Q8 IVPB Last administered on 12/26/18 05:44; Admin Dose 200 MLS/HR; Start 12/24/18 at 13:00 Acetaminophen (Tylenol Tab) 650 mg Q6H PRN PO MILD PAIN(1-3)OR ELEVATED TEMP; Start 12/25/18 at 19:00 Ibuprofen (Motrin) 600 mg Q6H PRN PO PAIN LEVEL 1-5; Start 12/25/18 at 19:00 Acetaminophen/ Hydrocodone Bitart ([place] (5/325)) 2 tab Q4H PRN PO Pain 6-10; Start 12/25/18 at 19:00 Morphine Sulfate (morphine) 2 mg Q2H PRN IV Breakthrough PAIN Last administered on 12/26/18 02:03; Admin Dose 2 MG; Start 12/25/18 at 19:00 BRAYDEN ANDREW NP December 26, 2018 11:12
--- NOTE | 2018-12-26 14:28 | PN ---
Date/Time of Note Date/Time of Note DATE: 12/26/18 TIME: 14:22 Assessment/Plan VTE Prophylaxis Risk score (from Ns)>0 risk: 9 SCD applied (from Ns): Yes Pharmacological prophylaxis: other (scds) Lines/Catheters [facility]ter Type (from [facility]): Peripheral IV Urinary Cath still in place: No Assessment/Plan Hospital Course Summary Assessment and Plan: Assessment: Transaminitis- trending down Direct hyperbilirubinemia- resolved Dilated common bile duct on ultrasound from outside hospital -MRCP- Choledocholithiasis and mild intra and extrahepatic biliary ductal dilatation as described Probable acute cholecystitis with at least 1 stone or a grouping of stones seen in the cystic duct -.S/p laparoscopic cholecystectomy, Laparoscopic liver wedge resection biopsy, Attempted clearing of possible common bile duct stone however unable to maneuver Probable hepatic steatosis Plan: MRCP today to r/o CBD obstruction, monitor LFTs If MRCP is negative and patient is able to tolerate diet ok to d/c from GI point of view Patient seen in collaboration with Dr. Orozco/Bonilla Subjective: Course reviewed with nursing staff Patient interviewed and examined All labs, imaging and other results reviewed Patient resting in bed, no c/o n/v or increased abd pain Discussed plan, pt verbalized understanding and is agreeable Exam PHYSICAL EXAMINATION: GENERAL: Well developed, well nourished, alert & oriented x 3, in no acute distress SKIN: Surgical incisions HEAD: Normocephalic, atraumatic, no tenderness. EYES: Pupils equal reactive to light, no discharge. EARS/NOSE AND THROAT: Ears normal. NECK: Supple, no masses, thyroid normal. CHEST: Inspection within normal limits. CARDIOVASCULAR: Heart: Regular rate and rhythm, RESPIRATORY: Lungs clear to auscultation and percussion, no wheezing, no rubs GASTROINTESTINAL AND LIVER: Abdomen: Soft, RUQ tenderness, non-distended, no hernias, no masses, no organomegaly, no ascites, no guarding, no rebound tenderness, normoactive bowel sounds. Rectal: Deferred. EXTREMITIES: No cyanosis, clubbing or edema. Result Diagram: 12/26/18 0437 12/26/18 0437 Results 24hrs Laboratory Tests Test 12/26/18 04:37 White Blood Count 10.3 # Red Blood Count 3.91 L Hemoglobin 11.9 L Hematocrit 35.6 L Mean Corpuscular Volume 91.0 Mean Corpuscular Hemoglobin 30.4 Mean Corpuscular Hemoglobin Concent 33.4 Red Cell Distribution Width 14.4 Platelet Count 277 Mean Platelet Volume 9.9 Immature Granulocytes % 0.300 Neutrophils % 68.8 Lymphocytes % 23.8 Monocytes % 6.2 Eosinophils % 0.6 Basophils % 0.3 Nucleated Red Blood Cells % 0.0 Immature Granulocytes # 0.030 Neutrophils # 7.1 Lymphocytes # 2.5 Monocytes # 0.6 Eosinophils # 0.1 Basophils # 0.0 Nucleated Red Blood Cells # 0.0 Sodium Level 137 Potassium Level 3.4 L Chloride Level 102 Carbon Dioxide Level 29 Anion Gap 6 Blood Urea Nitrogen 7 Creatinine 0.75 Est Glomerular Filtrat Rate mL/min > 60 Glucose Level 104 Calcium Level 8.4 Total Bilirubin 0.6 Direct Bilirubin 0.00 Indirect Bilirubin 0.6 Aspartate Amino Transf (AST/SGOT) 72 H Alanine Aminotransferase (ALT/SGPT) 134 H Alkaline Phosphatase 91 Total Protein 6.0 L Albumin 3.2 L Globulin 2.80 Albumin/Globulin Ratio 1.14 Exam/Review of Systems Exam Vitals Vital Signs Date Temp Pulse Resp B/P (MAP) Pulse Ox O2 O2 Flow FiO2 Time Delivery Rate 12/26/18 98.9 60 19 127/73 98 08:33 (91) 12/26/18 Nasal 1.0 00:01 Cannula Intake and Output 12/25/18 12/25/18 12/26/18 1515:00 23:00 07:00 IntakeIntake Total 500 ml 1600 ml 650 ml OutputOutput Total 55 ml 40 ml BalanceBalance 500 ml 1545 ml 610 ml Results Results 24hrs Laboratory Tests Test 12/26/18 04:37 White Blood Count 10.3 # Red Blood Count 3.91 L Hemoglobin 11.9 L Hematocrit 35.6 L Mean Corpuscular Volume 91.0 Mean Corpuscular Hemoglobin 30.4 Mean Corpuscular Hemoglobin Concent 33.4 Red Cell Distribution Width 14.4 Platelet Count 277 Mean Platelet Volume 9.9 Immature Granulocytes % 0.300 Neutrophils % 68.8 Lymphocytes % 23.8 Monocytes % 6.2 Eosinophils % 0.6 Basophils % 0.3 Nucleated Red Blood Cells % 0.0 Immature Granulocytes # 0.030 Neutrophils # 7.1 Lymphocytes # 2.5 Monocytes # 0.6 Eosinophils # 0.1 Basophils # 0.0 Nucleated Red Blood Cells # 0.0 Sodium Level 137 Potassium Level 3.4 L Chloride Level 102 Carbon Dioxide Level 29 Anion Gap 6 Blood Urea Nitrogen 7 Creatinine 0.75 Est Glomerular Filtrat Rate mL/min > 60 Glucose Level 104 Calcium Level 8.4 Total Bilirubin 0.6 Direct Bilirubin 0.00 Indirect Bilirubin 0.6 Aspartate Amino Transf (AST/SGOT) 72 H Alanine Aminotransferase (ALT/SGPT) 134 H Alkaline Phosphatase 91 Total Protein 6.0 L Albumin 3.2 L Globulin 2.80 Albumin/Globulin Ratio 1.14 Medications Medication Current Medications Ondansetron HCl (Zofran Inj) 4 mg Q6H PRN IV NAUSEA/VOMITING; Start 12/23/18 at 10:30 Acetaminophen (Tylenol Tab) 650 mg Q6H PRN PO .PAIN 1-3 OR TEMP; Start 12/23/18 at 10:30 Acetaminophen/ Hydrocodone Bitart ([place] (5/325)) 1 tab Q6H PRN PO .MOD PAIN 4- 6 Last administered on 12/24/18at 07:42; Admin Dose 1 TAB; Start 12/23/18 at 10:30 Morphine Sulfate (morphine) 2 mg Q4H PRN IV .SEVERE PAIN 7-10 Last administered on 12/26/18at 06:50; Admin Dose 2 MG; Start 12/23/18 at 10:30 Docusate Sodium (Colace) 100 mg Q12 PO Last administered on 12/26/18 09:46; Admin Dose 100 MG; Start 12/23/18 at 10:30 Famotidine (Pepcid) 20 mg Q12 PO Last administered on 12/26/18at 09:46; Admin Dose 20 MG; Start 12/23/18 at 10:30 Piperacillin Sod/ Tazobactam Sod 100 ml @ 200 mls/hr Q8 IVPB Last administered on 12/26/18at 13:46; Admin Dose 200 MLS/HR; Start 12/24/18 at 13:00 Acetaminophen (Tylenol Tab) 650 mg Q6H PRN PO MILD PAIN(1-3)OR ELEVATED TEMP; Start 12/25/18 at 19:00 Ibuprofen (Motrin) 600 mg Q6H PRN PO PAIN LEVEL 1-5; Start 12/25/18 at 19:00 Acetaminophen/ Hydrocodone Bitart ([place] (5/325)) 2 tab Q4H PRN PO Pain 6-10; Start 12/25/18 at 19:00 Morphine Sulfate (morphine) 2 mg Q2H PRN IV Breakthrough PAIN Last administered on 12/26/18at 02:03; Admin Dose 2 MG; Start 12/25/18 at 19:00 ANDERS DAVIS December 26, 2018 14:28
[2018-12-26 15:41] VITALS: BP 127/78; PULSE 71; RESP 18
[2018-12-26 19:35] VITALS: BP 130/75; PULSE 76; RESP 20
[2018-12-27] MEDS: PIPER-TAZO 3.375 GM IV (PMX) 100 ML IVPB SCH ×3 (06:10→21:25)
[2018-12-27 08:21] VITALS: BP 137/74; PULSE 76; RESP 18
[2018-12-27] MEDS: FAMOTIDINE 20 MG TAB PO SCH ×2 (09:08→20:12)
[2018-12-27] MEDS: DOCUSATE SODIUM 100 MG CAP PO SCH ×2 (09:08→20:12)
--- NOTE | 2018-12-27 14:33 | PN ---
Date/Time of Note Date/Time of Note DATE: 12/27/18 TIME: 14:28 Assessment/Plan VTE [place] [facility] [place]: 3 [place] [facility] Yes Pharmacological prophylaxis: NA/contraindicated Pharm contraindication: low risk/ambulating Lines/Catheters [facility] Type (from [facility]): Peripheral IV Urinary Cath still in place: No Assessment/Plan Hospital Course Assessment and plan 1. symptomatic cholelithiasis. - s/p laparoscopic cholecystectomy with possible retained stone (recent mrcp : No evidence of biliary obstruction or choledocholithiasis.). Continue with analgesics. 2. Choledocholithiasis. Patient status post ERCP 12/25/18. -Monitor LFT. is improving - repeat mrcp with no stone 3. Hypokalemia - monitor electrolytes and replete as needed Disposition plan: continue with analgesics. Appears to be improving. d/c when cleared by consults Discussed POC with Dr. Finley Result Diagram: 12/27/18 0441 12/27/18 0442 Results 24hrs Laboratory Tests Test 12/27/18 04:41 12/27/18 04:42 White Blood Count 7.7 # Red Blood Count 3.96 L Hemoglobin 12.1 Hematocrit 36.0 L Mean Corpuscular Volume 90.9 Mean Corpuscular Hemoglobin 30.6 Mean Corpuscular Hemoglobin Concent 33.6 Red Cell Distribution Width 14.5 Platelet Count 273 Mean Platelet Volume 9.7 Immature Granulocytes % 0.100 Neutrophils % 61.6 Lymphocytes % 28.3 Monocytes % 7.4 Eosinophils % 2.1 Basophils % 0.5 Nucleated Red Blood Cells % 0.0 Immature Granulocytes # 0.010 Neutrophils # 4.7 Lymphocytes # 2.2 Monocytes # 0.6 Eosinophils # 0.2 Basophils # 0.0 Nucleated Red Blood Cells # 0.0 Sodium Level 139 Potassium Level 3.5 Chloride Level 104 Carbon Dioxide Level 29 Anion Gap 6 Blood Urea Nitrogen 5 L Creatinine 0.75 Est Glomerular Filtrat Rate mL/min > 60 Glucose Level 98 Calcium Level 8.9 Total Bilirubin 0.7 Direct Bilirubin 0.00 Indirect Bilirubin 0.7 Aspartate Amino Transf (AST/SGOT) 57 H Alanine Aminotransferase (ALT/SGPT) 113 H Alkaline Phosphatase 91 Total Protein 6.3 Albumin 3.4 Globulin 2.90 Albumin/Globulin Ratio 1.17 Subjective 24 Hr Interval Summary Free Text/Dictation Comfortable at present. No specific complaints. Exam/Review of Systems Exam Vitals Vital Signs Date Temp Pulse Resp B/P (MAP) Pulse Ox O2 O2 Flow FiO2 Time Delivery Rate 12/27/18 98.9 76 18 137/74 98 08:21 (95) 12/26/18 Room Air 19:35 12/26/18 1.0 00:01 Intake and Output 12/26/18 12/26/18 12/27/18 1515:00 23:00 07:00 IntakeIntake Total 1330 ml 560 ml 410 ml OutputOutput Total 450 ml 40 ml 30 ml BalanceBalance 880 ml 520 ml 380 ml Exam Constitutional: alert, oriented Psych: nl mood/affect Head: normocephalic Neck: supple, non-tender Respiratory: clear to auscultation Cardiovascular: regular rate and rhythm Gastrointestinal: soft, tender (Minimally on right flank.), other (There is also noted KENYATTA bulb on right upper abdominal quadrant) Musculoskeletal: nl gait and stance Neurological: RUNWAY MODEL II-XII intact, nl mental status, nl speech Skin: other (Surgical site clean dry and intact) Results Results 24hrs Laboratory Tests Test 12/27/18 04:41 12/27/18 04:42 White Blood Count 7.7 # Red Blood Count 3.96 L Hemoglobin 12.1 Hematocrit 36.0 L Mean Corpuscular Volume 90.9 Mean Corpuscular Hemoglobin 30.6 Mean Corpuscular Hemoglobin Concent 33.6 Red Cell Distribution Width 14.5 Platelet Count 273 Mean Platelet Volume 9.7 Immature Granulocytes % 0.100 Neutrophils % 61.6 Lymphocytes % 28.3 Monocytes % 7.4 Eosinophils % 2.1 Basophils % 0.5 Nucleated Red Blood Cells % 0.0 Immature Granulocytes # 0.010 Neutrophils # 4.7 Lymphocytes # 2.2 Monocytes # 0.6 Eosinophils # 0.2 Basophils # 0.0 Nucleated Red Blood Cells # 0.0 Sodium Level 139 Potassium Level 3.5 Chloride Level 104 Carbon Dioxide Level 29 Anion Gap 6 Blood Urea Nitrogen 5 L Creatinine 0.75 Est Glomerular Filtrat Rate mL/min > 60 Glucose Level 98 Calcium Level 8.9 Total Bilirubin 0.7 Direct Bilirubin 0.00 Indirect Bilirubin 0.7 Aspartate Amino Transf (AST/SGOT) 57 H Alanine Aminotransferase (ALT/SGPT) 113 H Alkaline Phosphatase 91 Total Protein 6.3 Albumin 3.4 Globulin 2.90 Albumin/Globulin Ratio 1.17 Medications Medication Current Medications Ondansetron HCl (Zofran Inj) 4 mg Q6H PRN IV NAUSEA/VOMITING; Start 12/23/18 at 10:30 Acetaminophen (Tylenol Tab) 650 mg Q6H PRN PO .PAIN 1-3 OR TEMP; Start 12/23/18 at 10:30 Acetaminophen/ Hydrocodone Bitart ([place] (5/325)) 1 tab Q6H PRN PO .MOD PAIN 4- 6 Last administered on 12/24/18at 07:42; Admin Dose 1 TAB; Start 12/23/18 at 10:30 Morphine Sulfate (morphine) 2 mg Q4H PRN IV .SEVERE PAIN 7-10 Last administered on 12/26/18 06:50; Admin Dose 2 MG; Start 12/23/18 at 10:30 Docusate Sodium (Colace) 100 mg Q12 PO Last administered on 12/27/18 09:08; Admin Dose 100 MG; Start 12/23/18 at 10:30 Famotidine (Pepcid) 20 mg Q12 PO Last administered on 12/27/18 09:08; Admin Dose 20 MG; Start 12/23/18 at 10:30 Piperacillin Sod/ Tazobactam Sod 100 ml @ 200 mls/hr Q8 IVPB Last administered on 12/27/18 14:19; Admin Dose 200 MLS/HR; Start 12/24/18 at 13:00 Acetaminophen (Tylenol Tab) 650 mg Q6H PRN PO MILD PAIN(1-3)OR ELEVATED TEMP; Start 12/25/18 at 19:00 Ibuprofen (Motrin) 600 mg Q6H PRN PO PAIN LEVEL 1-5; Start 12/25/18 at 19:00 Acetaminophen/ Hydrocodone Bitart ([place] (5/325)) 2 tab Q4H PRN PO Pain 6-10; Start 12/25/18 at 19:00 Morphine Sulfate (morphine) 2 mg Q2H PRN IV Breakthrough PAIN Last administered on 12/26/18 02:03; Admin Dose 2 MG; Start 12/25/18 at 19:00 BRAYDEN ANDREW NP December 27, 2018 14:33
[2018-12-27 15:20] VITALS: BP 122/81; PULSE 75; RESP 18
--- NOTE | 2018-12-27 17:44 | PN ---
Date/Time of Note Date/Time of Note DATE: 12/27/18 TIME: 17:39 Assessment/Plan VTE Prophylaxis Risk score (from Ns)>0 risk: 3 SCD applied (from Ns): Yes Pharmacological prophylaxis: other (scds) Lines/Catheters [facility] Type (from [facility]): Peripheral IV Urinary Cath still in place: No Assessment/Plan Hospital Course Summary Assessment and Plan: Assessment: Transaminitis- trending down Direct hyperbilirubinemia- resolved Dilated common bile duct on ultrasound from outside hospital -MRCP- Choledocholithiasis and mild intra and extrahepatic biliary ductal dilatation as described -Repeat MRCP- No evidence of biliary obstruction or choledocholithiasis.The patient is status post cholecystectomy with fluid seen in the gallbladder fossa extending into the right pericolic gutter which could represent postsurgical changes however biliary leak is not excluded. Probable acute cholecystitis with at least 1 stone or a grouping of stones seen in the cystic duct -.S/p laparoscopic cholecystectomy, Laparoscopic liver wedge resection biopsy, Attempted clearing of possible common bile duct stone however unable to maneuver Probable hepatic steatosis Plan: Diet as tolerated Cleared from GI point of view for out-pt management once cleared by surgery. Patient seen in collaboration with Dr. Orozco/Bonilla Subjective: Course reviewed with nursing staff Patient interviewed and examined All labs, imaging and other results reviewed No over night evens, pt tolerating diet well 100 degree fever yesterday, afebrile today, WBC WNL. Family at bedside Patient states she feels well and ready to go home Exam PHYSICAL EXAMINATION: GENERAL: Well developed, well nourished, alert & oriented x 3, in no acute distress SKIN: Surgical incisions HEAD: Normocephalic, atraumatic, no tenderness. EYES: Pupils equal reactive to light, no discharge. EARS/NOSE AND THROAT: Ears normal. NECK: Supple, no masses, thyroid normal. CHEST: Inspection within normal limits. CARDIOVASCULAR: Heart: Regular rate and rhythm, RESPIRATORY: Lungs clear to auscultation and percussion, no wheezing, no rubs GASTROINTESTINAL AND LIVER: Abdomen: Soft, RUQ tenderness, non-distended, no hernias, no masses, no organomegaly, no ascites, no guarding, no rebound tenderness, normoactive bowel sounds. Rectal: Deferred. EXTREMITIES: No cyanosis, clubbing or edema. Result Diagram: 12/27/18 0441 12/27/18 0442 Results 24hrs Laboratory Tests Test 12/27/18 04:41 12/27/18 04:42 White Blood Count 7.7 # Red Blood Count 3.96 L Hemoglobin 12.1 Hematocrit 36.0 L Mean Corpuscular Volume 90.9 Mean Corpuscular Hemoglobin 30.6 Mean Corpuscular Hemoglobin Concent 33.6 Red Cell Distribution Width 14.5 Platelet Count 273 Mean Platelet Volume 9.7 Immature Granulocytes % 0.100 Neutrophils % 61.6 Lymphocytes % 28.3 Monocytes % 7.4 Eosinophils % 2.1 Basophils % 0.5 Nucleated Red Blood Cells % 0.0 Immature Granulocytes # 0.010 Neutrophils # 4.7 Lymphocytes # 2.2 Monocytes # 0.6 Eosinophils # 0.2 Basophils # 0.0 Nucleated Red Blood Cells # 0.0 Sodium Level 139 Potassium Level 3.5 Chloride Level 104 Carbon Dioxide Level 29 Anion Gap 6 Blood Urea Nitrogen 5 L Creatinine 0.75 Est Glomerular Filtrat Rate mL/min > 60 Glucose Level 98 Calcium Level 8.9 Total Bilirubin 0.7 Direct Bilirubin 0.00 Indirect Bilirubin 0.7 Aspartate Amino Transf (AST/SGOT) 57 H Alanine Aminotransferase (ALT/SGPT) 113 H Alkaline Phosphatase 91 Total Protein 6.3 Albumin 3.4 Globulin 2.90 Albumin/Globulin Ratio 1.17 Exam/Review of Systems Exam Vitals Vital Signs Date Temp Pulse Resp B/P (MAP) Pulse Ox O2 O2 Flow FiO2 Time Delivery Rate 12/27/18 98.5 75 18 122/81 97 15:20 (95) 12/26/18 Room Air 19:35 12/26/18 1.0 00:01 Intake and Output 12/26/18 12/26/18 12/27/18 1515:00 23:00 07:00 IntakeIntake Total 1330 ml 560 ml 410 ml OutputOutput Total 450 ml 40 ml 30 ml BalanceBalance 880 ml 520 ml 380 ml Results Results 24hrs Laboratory Tests Test 12/27/18 04:41 12/27/18 04:42 White Blood Count 7.7 # Red Blood Count 3.96 L Hemoglobin 12.1 Hematocrit 36.0 L Mean Corpuscular Volume 90.9 Mean Corpuscular Hemoglobin 30.6 Mean Corpuscular Hemoglobin Concent 33.6 Red Cell Distribution Width 14.5 Platelet Count 273 Mean Platelet Volume 9.7 Immature Granulocytes % 0.100 Neutrophils % 61.6 Lymphocytes % 28.3 Monocytes % 7.4 Eosinophils % 2.1 Basophils % 0.5 Nucleated Red Blood Cells % 0.0 Immature Granulocytes # 0.010 Neutrophils # 4.7 Lymphocytes # 2.2 Monocytes # 0.6 Eosinophils # 0.2 Basophils # 0.0 Nucleated Red Blood Cells # 0.0 Sodium Level 139 Potassium Level 3.5 Chloride Level 104 Carbon Dioxide Level 29 Anion Gap 6 Blood Urea Nitrogen 5 L Creatinine 0.75 Est Glomerular Filtrat Rate mL/min > 60 Glucose Level 98 Calcium Level 8.9 Total Bilirubin 0.7 Direct Bilirubin 0.00 Indirect Bilirubin 0.7 Aspartate Amino Transf (AST/SGOT) 57 H Alanine Aminotransferase (ALT/SGPT) 113 H Alkaline Phosphatase 91 Total Protein 6.3 Albumin 3.4 Globulin 2.90 Albumin/Globulin Ratio 1.17 Medications Medication Current Medications Ondansetron HCl (Zofran Inj) 4 mg Q6H PRN IV NAUSEA/VOMITING; Start 12/23/18 at 10:30 Acetaminophen (Tylenol Tab) 650 mg Q6H PRN PO .PAIN 1-3 OR TEMP; Start 12/23/18 at 10:30 Acetaminophen/ Hydrocodone Bitart ([place] (5/325)) 1 tab Q6H PRN PO .MOD PAIN 4- 6 Last administered on 12/24/18at 07:42; Admin Dose 1 TAB; Start 12/23/18 at 10:30 Morphine Sulfate (morphine) 2 mg Q4H PRN IV .SEVERE PAIN 7-10 Last administered on 12/26/18at 06:50; Admin Dose 2 MG; Start 12/23/18 at 10:30 Docusate Sodium (Colace) 100 mg Q12 PO Last administered on 12/27/18 09:08; Admin Dose 100 MG; Start 12/23/18 at 10:30 Famotidine (Pepcid) 20 mg Q12 PO Last administered on 12/27/18 09:08; Admin Dose 20 MG; Start 12/23/18 at 10:30 Piperacillin Sod/ Tazobactam Sod 100 ml @ 200 mls/hr Q8 IVPB Last administered on 12/27/18at 14:19; Admin Dose 200 MLS/HR; Start 12/24/18 at 13:00 Acetaminophen (Tylenol Tab) 650 mg Q6H PRN PO MILD PAIN(1-3)OR ELEVATED TEMP; Start 12/25/18 at 19:00 Ibuprofen (Motrin) 600 mg Q6H PRN PO PAIN LEVEL 1-5; Start 12/25/18 at 19:00 Acetaminophen/ Hydrocodone Bitart ([place] (5/325)) 2 tab Q4H PRN PO Pain 6-10; Start 12/25/18 at 19:00 Morphine Sulfate (morphine) 2 mg Q2H PRN IV Breakthrough PAIN Last administered on 12/26/18at 02:03; Admin Dose 2 MG; Start 12/25/18 at 19:00 ANDERS DAVIS December 27, 2018 17:44
[2018-12-27 20:00] VITALS: BP 135/71; PULSE 65; RESP 16
[2018-12-28 01:26] VITALS: BP 126/79; PULSE 72; RESP 18
[2018-12-28] MEDS: PIPER-TAZO 3.375 GM IV (PMX) 100 ML IVPB SCH ×3 (05:57→21:23)
[2018-12-28 07:28] VITALS: BP 125/71; PULSE 68; RESP 19
[2018-12-28] MEDS: FAMOTIDINE 20 MG TAB PO SCH ×2 (09:08→21:23)
[2018-12-28] MEDS: DOCUSATE SODIUM 100 MG CAP PO SCH ×2 (09:08→21:22)
--- NOTE | 2018-12-28 11:09 | PN ---
Date/Time of Note Date/Time of Note DATE: 12/28/18 TIME: 11:05 Assessment/Plan VTE Prophylaxis Risk score (from [facility] [place]0 risk: 3 SCD applied (from Ns): Yes Pharmacological prophylaxis: NA/contraindicated Pharm contraindication: low risk/ambulating Lines/Catheters IV Catheter Type (from [facility] [place]): Peripheral IV Urinary Cath still in place: No Assessment/Plan Assessment/Plan 1. Symptomatic cholelithiasis s/p lap les - General surgery consultation appreciated. Will have pt follow up in 1 week as outpatient 2. Choledocholithiasis s/p ERCP 12/25/18 - LFT trending down - MRCP with no retained stone - tolerating PO intake and denies any pain 3. Constipation - bowel regime 4. Disposition - Medically stable for discharge home Result Diagram: 12/28/18 0449 12/28/189 Results 24hrs Laboratory Tests Test 12/28/18 04:49 White Blood Count 7.2 Red Blood Count 3.96 L Hemoglobin 11.8 L Hematocrit 36.5 L Mean Corpuscular Volume 92.2 Mean Corpuscular Hemoglobin 29.8 Mean Corpuscular Hemoglobin Concent 32.3 Red Cell Distribution Width 14.5 Platelet Count 280 Mean Platelet Volume 9.9 Immature Granulocytes % 0.300 Neutrophils % 52.0 Lymphocytes % 35.3 Monocytes % 8.1 Eosinophils % 3.6 Basophils % 0.7 Nucleated Red Blood Cells % 0.0 Immature Granulocytes # 0.020 Neutrophils # 3.7 Lymphocytes # 2.5 Monocytes # 0.6 Eosinophils # 0.3 Basophils # 0.1 Nucleated Red Blood Cells # 0.0 Sodium Level 139 Potassium Level 3.5 Chloride Level 104 Carbon Dioxide Level 28 Anion Gap 7 Blood Urea Nitrogen 6 L Creatinine 0.76 Est Glomerular Filtrat Rate mL/min > 60 Glucose Level 93 Calcium Level 9.3 Total Bilirubin 0.6 Direct Bilirubin 0.00 Indirect Bilirubin 0.6 Aspartate Amino Transf (AST/SGOT) 48 H Alanine Aminotransferase (ALT/SGPT) 97 H Alkaline Phosphatase 84 Total Protein 6.7 Albumin 3.6 Globulin 3.10 Albumin/Globulin Ratio 1.16 Subjective 24 Hr Interval Summary Free Text/Dictation Patient states shes feeling better but concerned that she has not had a BM in a while. No acute overnight events. Exam/Review of Systems Exam Vitals Vital Signs Date Temp Pulse Resp B/P (MAP) Pulse Ox O2 O2 Flow FiO2 Time Delivery Rate 12/28/18 98.2 68 19 125/71 99 Room Air 07:28 (89) 12/26/18 1.0 00:01 Intake and Output 12/27/18 12/27/18 12/28/18 1515:00 23:00 07:00 IntakeIntake Total 100 ml 100 ml 900 ml OutputOutput Total 20 ml BalanceBalance 80 ml 100 ml 900 ml Exam General: Patient is sitting in chair at bedside. no acute distress Neck: Supple Lungs: Clear to auscultation bilaterally, no wheezing or rhonchi Heart: Normal S1-S2, Regular rhythm and rate. No murmur, S3, or S4 Abdomen: Soft , nontender, nondistended , bowel sounds are present. No guarding no rebound tenderness Extremities: Normal to inspection, no edema no cyanosis Skin: incision site clean and dry Results Results 24hrs Laboratory Tests Test 12/28/18 04:49 White Blood Count 7.2 Red Blood Count 3.96 L Hemoglobin 11.8 L Hematocrit 36.5 L Mean Corpuscular Volume 92.2 Mean Corpuscular Hemoglobin 29.8 Mean Corpuscular Hemoglobin Concent 32.3 Red Cell Distribution Width 14.5 Platelet Count 280 Mean Platelet Volume 9.9 Immature Granulocytes % 0.300 Neutrophils % 52.0 Lymphocytes % 35.3 Monocytes % 8.1 Eosinophils % 3.6 Basophils % 0.7 Nucleated Red Blood Cells % 0.0 Immature Granulocytes # 0.020 Neutrophils # 3.7 Lymphocytes # 2.5 Monocytes # 0.6 Eosinophils # 0.3 Basophils # 0.1 Nucleated Red Blood Cells # 0.0 Sodium Level 139 Potassium Level 3.5 Chloride Level 104 Carbon Dioxide Level 28 Anion Gap 7 Blood Urea Nitrogen 6 L Creatinine 0.76 Est Glomerular Filtrat Rate mL/min > 60 Glucose Level 93 Calcium Level 9.3 Total Bilirubin 0.6 Direct Bilirubin 0.00 Indirect Bilirubin 0.6 Aspartate Amino Transf (AST/SGOT) 48 H Alanine Aminotransferase (ALT/SGPT) 97 H Alkaline Phosphatase 84 Total Protein 6.7 Albumin 3.6 Globulin 3.10 Albumin/Globulin Ratio 1.16 Medications Medication Current Medications Ondansetron HCl (Zofran Inj) 4 mg Q6H PRN IV NAUSEA/VOMITING; Start 12/23/18 at 10:30 Acetaminophen (Tylenol Tab) 650 mg Q6H PRN PO .PAIN 1-3 OR TEMP; Start 12/23/18 at 10:30 Acetaminophen/ Hydrocodone Bitart ([place] (5/325)) 1 tab Q6H PRN PO .MOD PAIN 4- 6 Last administered on 12/24/18 07:42; Admin Dose 1 TAB; Start 12/23/18 at 10:30 Morphine Sulfate (morphine) 2 mg Q4H PRN IV .SEVERE PAIN 7-10 Last administered on 12/26/18 06:50; Admin Dose 2 MG; Start 12/23/18 at 10:30 Docusate Sodium (Colace) 100 mg Q12 PO Last administered on 12/28/18 09:08; Admin Dose 100 MG; Start 12/23/18 at 10:30 Famotidine (Pepcid) 20 mg Q12 PO Last administered on 12/28/18 09:08; Admin Dose 20 MG; Start 12/23/18 at 10:30 Piperacillin Sod/ Tazobactam Sod 100 ml @ 200 mls/hr Q8 IVPB Last administered on 12/28/18 05:57; Admin Dose 200 MLS/HR; Start 12/24/18 at 13:00 Acetaminophen (Tylenol Tab) 650 mg Q6H PRN PO MILD PAIN(1-3)OR ELEVATED TEMP; Start 12/25/18 at 19:00 Ibuprofen (Motrin) 600 mg Q6H PRN PO PAIN LEVEL 1-5; Start 12/25/18 at 19:00 Acetaminophen/ Hydrocodone Bitart ([place] (5/325)) 2 tab Q4H PRN PO Pain 6-10; Start 12/25/18 at 19:00 Morphine Sulfate (morphine) 2 mg Q2H PRN IV Breakthrough PAIN Last administered on 12/26/18 02:03; Admin Dose 2 MG; Start 12/25/18 at 19:00 NURIA YANES MD December 28, 2018 11:09
--- NOTE | 2018-12-28 11:18 | PDOCDIS ---
Discharge Instructions DIAGNOSIS Discharge Diagnosis 1. Symptomatic cholelithiasis s/p lap les 2. Choledocholithiasis s/p ERCP 12/25/18 3. Constipation CONDITION [id number] Patient Condition: [id number] Stable HOME CARE INSTRUCTIONS: [id number] Diet Instructions: [id number] Low Fat /Cholesterol ACTIVITY: [id number] Activity Restrictions: [id number] Slowly Increase Activity Rest between Activity Avoid heavy lifting [id number] Bathing Restrictions: [id number] Shower FOLLOW UP/APPOINTMENTS Follow-up Plan 1. Follow up with your primary care physician in 1-2 weeks 2. Follow up with general surgery in 1-2 weeks for post operative check 3. Avoid eating fatty and greasy foods 4. Do not lift more than 20 lbs for the next 6 weeks 5. Take Tylenol or Ibuprofen for pain 6. If experiencing any concerning symptoms, please go to your closest emergency department 1. seguimiento con chauhan mdico de atencin primaria en 1-2 semanas 2. seguimiento con ciruga general en 1-2 semanas para el control postoperatorio 3. Evite comer alimentos grasos y grasosos 4. no levante ms de 20 libras bertin las prximas 6 semanas 5. [place] Tylenol o ibuprofeno para el dolor 6. Si experimenta algn sntoma relacionado, por favor vaya a chauhan Departamento de emergencias ms cercano REFERRALS Other Referrals Lane Florian MD Specialty General Surgery Comments Office Address [address] [place] [address] [place] [id number] Office NURIA YANES MD December 28, 2018 11:18
[2018-12-28] MEDS ORDERED: BISACODYL (EC) 5 MG TAB PO ONE (11:30)
[2018-12-28 14:10] VITALS: BP 121/68; RESP 19
[2018-12-28] MEDS ORDERED: BENZONATATE 100 MG CAP PO PRN (14:30)
[2018-12-28] MEDS ORDERED: CEPASTAT LOZENGE MT PRN (14:30)
[2018-12-28 19:15] VITALS: BP 133/72; PULSE 100; RESP 18
[2018-12-29 01:26] VITALS: BP 116/64; PULSE 71; RESP 18
[2018-12-29] MEDS: PIPER-TAZO 3.375 GM IV (PMX) 100 ML IVPB SCH (05:53)
[2018-12-29] MEDS: DOCUSATE SODIUM 100 MG CAP PO SCH (08:04)
[2018-12-29] MEDS: FAMOTIDINE 20 MG TAB PO SCH (08:04)
[2018-12-29 08:29] VITALS: BP 118/70; PULSE 88; RESP 18
[2018-12-29] MEDS ORDERED: POTASSIUM CHLORIDE (SR) 20 MEQ TAB PO STA (09:33)
--- NOTE | 2018-12-29 09:45 | PN ---
Date/Time of Note Date/Time of Note DATE: 12/29/18 TIME: 09:41 Assessment/Plan Lines/Catheters IV Catheter Type (from [facility]): Peripheral IV William in Place (from [facility]): No Assessment/Plan Chief Complaint/Hosp Course 1. Symptomatic cholelithiasis with choledocholithiasis and stone within cystic duct: s/p ercp and sphincterotomy; Status post 3 port laparoscopic cho lecystectomy with attempted clearing of possible common bile duct stone which was unable to be maneuvered -Possible common bile duct stone unable to be maneuvered> per GI -IS -ambulate -ice pack to abdominal wall -advance diet as tolerated -DC drain -Okay for discharge from surgical standpoint. Patient will need follow-up in office in 2 weeks. 2. Abdominal pain: Resolved -As above -Pain management 3.Mild transaminitis; improving -As above -Trend 4. Normocytic normochromic anemia: -Monitor and transfuse as needed 5. Overweight BMI: 27 -diet and exercise optimization -encourage weight loss Thank you. Patient seen and examined in collaboration with Dr. Lane Florian. Subjective 24 Hr Interval Summary Feels well. No fevers, chills, sob, congested cough, cp, palpitations, leyva, dizziness, nausea, vomiting, diarrhea, dysuria. Exam/Review of Systems Vital Signs Vitals Vital Signs Date Temp Pulse Resp B/P (MAP) Pulse Ox O2 O2 Flow FiO2 Time Delivery Rate 12/29/18 98.6 88 18 118/70 97 Room Air 08:29 (86) 12/26/18 1.0 00:01 Intake and Output 12/28/18 12/28/18 12/29/18 1515:00 23:00 07:00 IntakeIntake Total 100 ml 100 ml 340 ml OutputOutput Total 30 ml BalanceBalance 70 ml 100 ml 340 ml Exam Free Text/Dictation Constitutional: alert, oriented, well developed Psych: nl mood/affect; No anxiety Head: normocephalic, atraumatic Eyes: nl conjunctiva, EOMI, nl lids, nl sclera ENMT: nl external ears & nose, nl lips & teeth, mucosa pink and moist Neck: supple, non-tender Respiratory: clear to auscultation, normal air movement Cardiovascular: regular rate and rhythm, nl pulses Gastrointestinal: soft, tender (abilio-incisional, incision sites dry without drainage/discoloration/bruising; KENYATTA drain: Serosanguineous) Musculoskeletal: nl extremities to inspection, nl gait and stance Extremities: normal pulses Neurological: nl mental status, nl speech, nl strength Skin: nl turgor; No rash or lesions Lymph: nl lymph nodes Results Result Diagram: 12/29/18 0426 12/29/18 0426 MARY OSMAN NP December 29, 2018 09:45
--- NOTE | 2018-12-29 11:57 | PN ---
Date/Time of Note Date/Time of Note DATE: 12/29/18 TIME: 11:56 Assessment/Plan VTE Prophylaxis Risk score (from [facility])>0 risk: 5 SCD applied (from [facility]): No SCD contraindicated: low risk/ambulating Pharmacological prophylaxis: NA/contraindicated Pharm contraindication: low risk/ambulating Lines/Catheters IV Catheter Type (from [facility] Peripheral IV Urinary Cath still in place: No Assessment/Plan Assessment/Plan 1. Symptomatic cholelithiasis s/p lap les - General surgery consultation appreciated. Will have pt follow up in 2 weeks as outpatient 2. Choledocholithiasis s/p ERCP 12/25/18 - LFT normalizing - MRCP with no retained stone - tolerating PO intake 3. Constipation - bowel regime 4. Disposition - Medically stable for discharge home Result Diagram: 12/29/1842512/29/18425 Results 24hrs Laboratory Tests Test 12/29/18 04:26 White Blood Count 7.3 Red Blood Count 3.91 L Hemoglobin 11.9 L Hematocrit 36.1 L Mean Corpuscular Volume 92.3 Mean Corpuscular Hemoglobin 30.4 Mean Corpuscular Hemoglobin Concent 33.0 Red Cell Distribution Width 14.4 Platelet Count 290 Mean Platelet Volume 9.6 Immature Granulocytes % 0.500 H Neutrophils % 69.1 Lymphocytes % 18.9 Monocytes % 8.0 Eosinophils % 3.0 Basophils % 0.5 Nucleated Red Blood Cells % 0.0 Immature Granulocytes # 0.040 H Neutrophils # 5.0 Lymphocytes # 1.4 Monocytes # 0.6 Eosinophils # 0.2 Basophils # 0.0 Nucleated Red Blood Cells # 0.0 Sodium Level 139 Potassium Level 3.2 L Chloride Level 105 Carbon Dioxide Level 27 Anion Gap 7 Blood Urea Nitrogen 10 Creatinine 0.85 Est Glomerular Filtrat Rate mL/min > 60 Glucose Level 111 Calcium Level 9.1 Total Bilirubin 0.5 Direct Bilirubin 0.00 Indirect Bilirubin 0.5 Aspartate Amino Transf (AST/SGOT) 31 Alanine Aminotransferase (ALT/SGPT) 76 H Alkaline Phosphatase 82 Total Protein 6.8 Albumin 3.8 Globulin 3.00 Albumin/Globulin Ratio 1.26 Subjective 24 Hr Interval Summary Free Text/Dictation Patient is doing well and denies any acute issues. KENYATTA drain removed this am. No acute overnight events. Exam/Review of Systems Exam Vitals Vital Signs Date Temp Pulse Resp B/P (MAP) Pulse Ox O2 O2 Flow FiO2 Time Delivery Rate 12/29/18 98.6 88 18 118/70 97 Room Air 08:29 (86) 12/26/18 1.0 00:01 Intake and Output 12/28/18 12/28/18 12/29/18 1515:00 23:00 07:00 IntakeIntake Total 100 ml 100 ml 340 ml OutputOutput Total 30 ml BalanceBalance 70 ml 100 ml 340 ml Exam General: Patient is sitting in chair at bedside. no acute distress Neck: Supple Lungs: Clear to auscultation bilaterally, no wheezing or rhonchi Heart: Normal S1-S2, Regular rhythm and rate. No murmur, S3, or S4 Abdomen: Soft , nontender, nondistended , bowel sounds are present. No guarding no rebound tenderness Extremities: Normal to inspection, no edema no cyanosis Skin: incision site clean and dry, dressing RLE clean and dry Results Results 24hrs Laboratory Tests Test 12/29/18 04:26 White Blood Count 7.3 Red Blood Count 3.91 L Hemoglobin 11.9 L Hematocrit 36.1 L Mean Corpuscular Volume 92.3 Mean Corpuscular Hemoglobin 30.4 Mean Corpuscular Hemoglobin Concent 33.0 Red Cell Distribution Width 14.4 Platelet Count 290 Mean Platelet Volume 9.6 Immature Granulocytes % 0.500 H Neutrophils % 69.1 Lymphocytes % 18.9 Monocytes % 8.0 Eosinophils % 3.0 Basophils % 0.5 Nucleated Red Blood Cells % 0.0 Immature Granulocytes # 0.040 H Neutrophils # 5.0 Lymphocytes # 1.4 Monocytes # 0.6 Eosinophils # 0.2 Basophils # 0.0 Nucleated Red Blood Cells # 0.0 Sodium Level 139 Potassium Level 3.2 L Chloride Level 105 Carbon Dioxide Level 27 Anion Gap 7 Blood Urea Nitrogen 10 Creatinine 0.85 Est Glomerular Filtrat Rate mL/min > 60 Glucose Level 111 Calcium Level 9.1 Total Bilirubin 0.5 Direct Bilirubin 0.00 Indirect Bilirubin 0.5 Aspartate Amino Transf (AST/SGOT) 31 Alanine Aminotransferase (ALT/SGPT) 76 H Alkaline Phosphatase 82 Total Protein 6.8 Albumin 3.8 Globulin 3.00 Albumin/Globulin Ratio 1.26 Medications Medication Current Medications Ondansetron HCl (Zofran Inj) 4 mg Q6H PRN IV NAUSEA/VOMITING; Start 12/23/18 at 10:30 Acetaminophen (Tylenol Tab) 650 mg Q6H PRN PO .PAIN 1-3 OR TEMP; Start 12/23/18 at 10:30 Acetaminophen/ Hydrocodone Bitart ([place] (5/325)) 1 tab Q6H PRN PO .MOD PAIN 4- 6 Last administered on 12/24/18 07:42; Admin Dose 1 TAB; Start 12/23/18 at 10:30 Morphine Sulfate (morphine) 2 mg Q4H PRN IV .SEVERE PAIN 7-10 Last administered on 12/26/18 06:50; Admin Dose 2 MG; Start 12/23/18 at 10:30 Docusate Sodium (Colace) 100 mg Q12 PO Last administered on 12/29/18 08:04; Admin Dose 100 MG; Start 12/23/18 at 10:30 Famotidine (Pepcid) 20 mg Q12 PO Last administered on 12/29/18 08:04; Admin Dose 20 MG; Start 12/23/18 at 10:30 Piperacillin Sod/ Tazobactam Sod 100 ml @ 200 mls/hr Q8 IVPB Last administered on 12/29/18 05:53; Admin Dose 200 MLS/HR; Start 12/24/18 at 13:00 Acetaminophen (Tylenol Tab) 650 mg Q6H PRN PO MILD PAIN(1-3)OR ELEVATED TEMP; Start 12/25/18 at 19:00 Ibuprofen (Motrin) 600 mg Q6H PRN PO PAIN LEVEL 1-5; Start 12/25/18 at 19:00 Acetaminophen/ Hydrocodone Bitart ([place] (5/325)) 2 tab Q4H PRN PO Pain 6-10; Start 12/25/18 at 19:00 Morphine Sulfate (morphine) 2 mg Q2H PRN IV Breakthrough PAIN Last administered on 12/26/18 02:03; Admin Dose 2 MG; Start 12/25/18 at 19:00 Phenol (Cepastat Lozenge) 1 lozenge Q1H PRN MT cough Last administered on 12/28/18 21:22; Admin Dose 1 LOZENGE; Start 12/28/18 at 14:30 Benzonatate (Tessalon) 100 mg TID PRN PO cough Last administered on 12/28/18 14:43; Admin Dose 100 MG; Start 12/28/18 at 14:30 NURIA YANES MD December 29, 2018 11:57
[2018-12-29] MEDS ORDERED: HYDR-3601 PO (11:59)
[2018-12-29] MEDS ORDERED: DOCU-144 PO (11:59)
[2018-12-29 15:17] VITALS: BP 139/91; PULSE 81; RESP 18
--- NOTE | 2018-12-29 18:30 | DS ---
Date/Time of Note Date/Time of Note DATE: 12/29/18 TIME: 18:25 Discharge Summary Admission/Discharge Info Admit Date/Time December 23, 2018 at 08:45 Discharge Date/Time 12/29/18 Discharge Diagnosis 1. Symptomatic cholelithiasis s/p lap les 2. Choledocholithiasis s/p ERCP 12/25/18 3. Constipation Patient Condition: Stable Consults General Surgery- Dr. Florian GI- Dr. Orozco Procedures Date/Time of Note Date/Time of Note DATE: 12/25/18 TIME: 19:58 Operative Report Free Text/Dictation Preoperative Diagnosis: Symptomatic cholelithiasis Choledocholithiasis status post ERCP Postoperative Diagnosis: Symptomatic cholelithiasis Abnormal liver color Choledocholithiasis status post ERCP Possible remnant common bile duct stone Operation(s) Performed: 1. 3 port laparoscopic cholecystectomy 2. Laparoscopic liver wedge resection biopsy 3. Attempted clearing of possible common bile duct stone however unable to maneuver Hx of Present Illness 43-year-old female who was sent to us from outside emergency room after she had gone to review for complaints of right upper quadrant pain for the last 8 days. Apparently she had gone to a different ER day prior and was giving pain medication but the pain was persistent. At that time she had been diagnosed with gallstones. Unfortunately the pain medications that were prescribed did not relieve her pain and so she went to [facility] for reassessment. She denied fever, hematemesis, melena, or hematochezia. Denies chest pain or shortness of breath. Had labs at the emergency room was notable for LFT elevation with obstructive biliary pattern. Ultrasound was showing a dilated common bile duct but no gallstone. The emergency room made a decision to admit for obstructive hepatopathy. Patient was at transferred to us due to insurance reasons. Hospital Course GI was consulted for ERCP after MRCP was noted with CBD dilation and retained stone. Patient underwent ERCP with sphincterotomy with no acute issues. Gener al surgery was consulted and patient underwent laparoscopic cholecystectomy which she tolerated. Surgery was unable to completely clear the stone in CBD but repeat MRCP did not show any dilatation. Patient was started on PO intake and tolerated a regular diet. Pain was controlled and KENYATTA drain was removed. Patients presenting symptoms improved significantly and completed course of antibiotics. Patient was discharged home in good condition. Home Meds Active Scripts Docusate Sodium* (Colace*) 100 Mg Capsule, 100 MG PO Q12 PRN for CONSTIPATION for 30 Days, #60 CAP Prov:NURIA YANES MD 12/29/18 Hydrocodone Bit-Acetaminophen (Hydrocodone Bit-APAP) 5-325MG Tablet, 1 TAB PO Q6H PRN for .MOD PAIN 4-6 for 5 Days, #15 TAB Prov:NURIA YANES MD 12/29/18 Follow-up Plan 1. Follow up with your primary care physician in 1-2 weeks 2. Follow up with general surgery in 1-2 weeks for post operative check 3. Avoid eating fatty and greasy foods 4. Do not lift more than 20 lbs for the next 6 weeks 5. Take Tylenol or Ibuprofen for pain 6. If experiencing any concerning symptoms, please go to your closest emergency department 1. seguimiento con chauhan mdico de atencin primaria en 1-2 semanas 2. seguimiento con ciruga general en 1-2 semanas para el control postoperatorio 3. Evite comer alimentos grasos y grasosos 4. no levante ms de 20 libras bertin las prximas 6 semanas 5. [place] Tylenol o ibuprofeno para el dolor 6. Si experimenta algn sntoma relacionado, por favor vaya a chauhan Departamento de emergencias ms yury Primary Care Provider Not On Staff Doctor Time spent on discharge: > 30 minutes Pending Labs Laboratory Tests Test 12/29/18 04:26 White Blood Count 7.3 10^3/ul (4.8-10.8) Red Blood Count 3.91 10^6/ul (4.20-5.40) Hemoglobin 11.9 g/dl (12.0-16.0) Hematocrit 36.1 % (37.0-47.0) Mean Corpuscular Volume 92.3 fl (82.0-101.0) Mean Corpuscular Hemoglobin 30.4 pg (29.0-33.0) Mean Corpuscular Hemoglobin Concent 33.0 g/dl (32.0-37.0) Red Cell Distribution Width 14.4 % (11.5-14.5) Platelet Count 290 10^3/UL (140-415) Mean Platelet Volume 9.6 fl (7.4-10.4) Immature Granulocytes % 0.500 % (0.001-0.429) Neutrophils % 69.1 % (39.0-77.0) Lymphocytes % 18.9 % (15.0-51.0) Monocytes % 8.0 % (0.0-11.0) Eosinophils % 3.0 % (0.0-7.0) Basophils % 0.5 % (0.0-2.0) Nucleated Red Blood Cells % 0.0 /100WBC (0.0-0.0) Immature Granulocytes # 0.040 10^3/ul (0.0-0.031) Neutrophils # 5.0 10^3/ul (1.6-7.5) Lymphocytes # 1.4 10^3/ul (0.8-2.9) Monocytes # 0.6 10^3/ul (0.3-0.9) Eosinophils # 0.2 10^3/ul (0.0-0.5) Basophils # 0.0 10^3/ul (0.0-0.1) Nucleated Red Blood Cells # 0.0 10^3/ul (0.0-0.0) Sodium Level 139 mmol/L (135-144) Potassium Level 3.2 mmol/L (3.5-5.1) Chloride Level 105 mmol/L (97-110) Carbon Dioxide Level 27 mmol/L (21-31) Anion Gap 7 (5-13) Blood Urea Nitrogen 10 mg/dl (7-20) Creatinine 0.85 mg/dl (0.44-1.00) Est Glomerular Filtrat Rate mL/min > 60 mL/min (>60) Glucose Level 111 mg/dl (70-220) Calcium Level 9.1 mg/dl (8.4-10.2) Total Bilirubin 0.5 mg/dl (0.2-1.3) Direct Bilirubin 0.00 mg/dl (0.00-0.20) Indirect Bilirubin 0.5 mg/dl (0-1.1) Aspartate Amino Transf (AST/SGOT) 31 IU/L (15-46) Alanine Aminotransferase (ALT/SGPT) 76 IU/L (13-69) Alkaline Phosphatase 82 IU/L (42-121) Total Protein 6.8 g/dl (6.1-8.1) Albumin 3.8 g/dl (3.3-4.9) Globulin 3.00 g/dl (1.3-3.2) Albumin/Globulin Ratio 1.26 NURIA YANES MD December 29, 2018 18:30
== END 2018-12-29 18:10 | disposition home or self-care (01) | DRG 419 ==
LOC: MS1 08:45
PROVIDERS: ADMIT Internal Medicine; ATTEND Internal Medicine
PROC: 0FC98ZZ Extirpation of Matter from Common Bile Duct, Via Natural or Artificial Opening Endoscopic (ICD-10-PCS; 2018-12-24)
PROC: 0FB04ZX Excision of Liver, Percutaneous Endoscopic Approach, Diagnostic (ICD-10-PCS; 2018-12-25)
PROC: 0FT44ZZ Resection of Gallbladder, Percutaneous Endoscopic Approach (ICD-10-PCS; principal; 2018-12-25 10:30)
DX: K80.70 Calculus of gallbladder and bile duct without cholecystitis without obstruction (principal); K76.89 Other specified diseases of liver; D64.9 Anemia, unspecified; Z68.26 Body mass index [BMI] 26.0-26.9, adult; E66.3 Overweight; K59.00 Constipation, unspecified; K83.8 Other specified diseases of biliary tract; R74.0 Nonspecific elevation of levels of transaminase and lactic acid dehydrogenase [LDH]; E87.6 Hypokalemia
CPT/HCPCS: 74181; 74330; 80048; 80053; 80076; 84703; 85025; 86704; 86709; 86803; 87340; 88304; 88307; 88313; J1100; J1170; J1200; J2175; J2270; J2405; J2543; J2710; J3010; J7042; Q9967